=== PATIENT | female | born 1940 | race Caucasian/White ===

== ENCOUNTER 2021-05-25 22:40 | Inpatient (IN) | payer MEDICARE, OTHER ==
[~2021-05-25] VITALS: Ht 165.1 cm; Wt 81.6 kg
--- NOTE | 2021-05-25 23:00 | NUR ---
PATIENT [facility] DUE TO NO BEDS AVAILABLE IN THE. AFTER BEING TRIAGED PATIENT WAS PLACED BACK IN HALLWAY WAITING FOR BE AVAILABILITY.
--- NOTE | 2021-05-26 00:46 | NUR ---
PATIENT PLACED IN ROOM 3A.
--- NOTE | 2021-05-26 02:07 | NUR ---
Ofe cheek in [facility] - 05/26/21 at 0256 by LAITH Report given to GIO Garcia for [place] admission under Dr. Jose C Caceres
[2021-05-26 02:19] LABS: HEMATOCRIT 34.5 % (31.2-41.9); MEAN CORPUSCULAR HEMOGLOBIN 26.1 uug (24.7-32.8); MEAN CORPUSCULAR VOLUME 84.2 fL (75.5-95.3); PLATELET COUNT (AUTO) 432 K/uL (179-408)
[2021-05-26 02:37] LABS: ALANINE AMINOTRANSFERASE 68 U/L (14-59); ALKALINE PHOSPHATASE 132 U/L (50-136); ASPARTATE AMINOTRANSFERASE 34 U/L (15-37); BILIRUBIN,DIRECT 0.1 mg/dL (0.0-0.2); BILIRUBIN,TOTAL 0.3 mg/dL (0.2-1.0); CARBON DIOXIDE 21 mmol/L (21-32); CHLORIDE 104 mmol/L (98-107); CREATININE 1.8 mg/dL (0.6-1.3); POTASSIUM 4.3 mmol/L (3.5-5.1); UREA NITROGEN, BLOOD 43 mg/dL (7-18)
[2021-05-26 02:46] LABS: GLUCOSE 372 mg/dL (74-106)
[2021-05-26] MEDS ORDERED: AZITHROMYCIN IV 500 MG in IV DEXTROSE 5% 250 ML IV ONE (03:30)
[2021-05-26] MEDS ORDERED: ENOXAPARIN SODIUM 80 MG/0.8 ML DISP.SYRIN SQ ONE ×2 (03:30→04:55)
[2021-05-26] MEDS ORDERED: VANCOMYCIN 1G/D5W 200 ML PIGGYBACK IV ONE (03:30)
[2021-05-26] MEDS ORDERED: IV NS 1000 ML 1,000 ML IV ONE (03:30)
[2021-05-26] MEDS ORDERED: CEFEPIME HCL 2 G in IV DEXTROSE 5% 100 ML IV ONE (03:30)
[2021-05-26 04:43] LABS: *BILIRUBIN,URIN 2+ (NEGATIVE); *BLOOD, URINE 3+ (NEGATIVE); *COLOR,URINE YELLOW (YELLOW); *KETONES,URINE 1+ (NEGATIVE); *UROBILINOGEN,URINE 0.2 E.U./dl (NORMAL); LEUKOCYTE ESTERASE ,URINE 1+ (NEGATIVE); NITRITE, URINE NEGATIVE (NEGATIVE); UGLUCOSE 1+ (NEGATIVE)
[2021-05-26 04:45] LABS: *CLARITY,URINE TURBID (CLEAR)
[2021-05-26 04:46] LABS: BACTERIA,URINE MANY /HPF (NONE SEEN); RBC,URINE 20-50 /HPF (0-3); SQUAMOUS EPITHELIAL CELL,UR FEW /HPF (NONE SEEN); WBC,URINE 50-80 /HPF (0-3)
[2021-05-26] MEDS ORDERED: ASPI81TA31 PO (04:46)
[2021-05-26] MEDS ORDERED: ATOR80TA PO (04:46)
[2021-05-26] MEDS ORDERED: MULT-619 PO (04:46)
[2021-05-26] MEDS ORDERED: INSU100C4 (04:46)
[2021-05-26] MEDS ORDERED: NIFE-35 PO (04:46)
[2021-05-26] MEDS ORDERED: CARV12.52 PO (04:46)
[2021-05-26] MEDS ORDERED: CLOP75TA33 PO (04:46)
[2021-05-26] MEDS ORDERED: ACET-2154 PO (04:46)
[2021-05-26] MEDS ORDERED: FAMO-132 PO (04:46)
--- NOTE | 2021-05-26 04:47 | NUR ---
PAGED DR VALDEZ, WAITING FOR DR ENRIQUEZ TO CALL BACK.
[2021-05-26] MEDS ORDERED: AZITHROMYCIN 500MG/ D5W 250ML IVPB **ER PYXIS ONLY IV ONE (04:55)
[2021-05-26] MEDS ORDERED: CEFEPIME HCL 1 G VIAL ONE (04:55)
[2021-05-26] MEDS ORDERED: VANCOMYCIN IV 200 ML ONE (04:56)
--- NOTE | 2021-05-26 06:34 | NUR ---
Patient in bed asleep, vital signs stable. Will continue to monitor.
--- NOTE | 2021-05-26 10:09 | NUR ---
perineal hygiene provided. diaper with large amount of urine, small skin abrasion on the left buttock noticed, irrigated with ns and dressed with border line dressing, small tender lump in the left groin also noticed.
[2021-05-26] MEDS ORDERED: DEXTROSE 50% 50 ML DISP.SYRIN IV PRN ×2 (11:30→20:45)
[2021-05-26] MEDS ORDERED: INSULIN ASPART 300 UNIT/3 ML CARTRIDGE SQ SCH (11:30)
[2021-05-26] MEDS ORDERED: ONDANSETRON 4 MG/2 ML VIAL IV PRN (11:30)
[2021-05-26] MEDS ORDERED: ZOLPIDEM 5 MG TABLET PO PRN (11:30)
[2021-05-26] MEDS ORDERED: ACETAMINOPHEN 325 MG TABLET PO PRN (11:30)
[2021-05-26] MEDS ORDERED: INSULIN REGULAR, HUMAN 300 UNIT/3 ML VIAL SQ PRN (11:30)
[2021-05-26] MEDS ORDERED: MAGNESIUM HYDROXIDE 30 ML LIQUID UDC PO PRN (11:30)
[2021-05-26] MEDS ORDERED: REMEDY ESSENTIAL ZINC PASTE 113 GM TP PRN (11:30)
[2021-05-26] MEDS ORDERED: PIPERACILLIN/TAZO 2.25 G in IV DEXTROSE 5% 50 ML IV SCH (12:00)
[2021-05-26] MEDS: BLOOD SUGAR DIAGNOSTIC 1 EACH STRIP VI SCH ×3 (12:18→21:09)
--- NOTE | 2021-05-26 12:20 | NUR ---
pt bs 436, medicated and called dr. rose per order.
[2021-05-26] MEDS ORDERED: INSULIN REGULAR, HUMAN 300 UNIT/3 ML VIAL ONE (12:31)
[2021-05-26] MEDS: CLOPIDOGREL 75 MG TABLET PO SCH (12:42)
[2021-05-26] MEDS: ASPIRIN 81 MG TAB.CHEW PO SCH (12:42)
[2021-05-26] MEDS: NIFEdipine XL 30 MG TABSR PO SCH (12:45)
[2021-05-26] MEDS ORDERED: NIFEdipine XL 30 MG TABSR PO ONE (12:50)
[2021-05-26] MEDS ORDERED: ASPIRIN 81 MG TAB.CHEW ONE (12:50)
[2021-05-26] MEDS ORDERED: CLOPIDOGREL 75 MG TABLET ONE (12:51)
--- NOTE | 2021-05-26 13:23 | NUR ---
O2 4 litre via nc placed, improved the o2 from 95% to 99% per MD order.
--- NOTE | 2021-05-26 14:02 | NUR ---
pt transfered to floor in stable condition
--- NOTE | 2021-05-26 14:05 | NUR ---
Patient received by charge nurse and GLOBAL MOBILITY SPECIALIST. Pt was sleeping when i entered the room. No sign of distress noted. Belongings list completed. Safety measure in place. Will continue to monitor.
--- NOTE | 2021-05-26 14:05 | NUR ---
Received this admission from ER per scarlett, 80 yo female, with the chief complaint of fever, with diagnosis of NSTEMI; Pneumonia. Transferred to bed comfortably. Routine admission care rendered. Awake, confused. Room air with O2 sat of 97%. Placed on Tele ST [facility]. Dr. Almaguer informed of admission
[2021-05-26 14:15] VITALS: BP 160/78
[2021-05-26 15:00] VITALS: BP 155/75
[2021-05-26] MEDS: CEFEPIME HCL 1 G in IV DEXTROSE 5% 50 ML IV SCH (18:26)
[2021-05-26] MEDS: CARVEDILOL 12.5 MG TABLET PO SCH (18:28)
--- NOTE | 2021-05-26 19:23 | NUR ---
Admission is completed. Medications given. Will endorse PCR and Picture to be done by oncoming nurse. Safety in place. Patient now awake and is confused.
--- NOTE | 2021-05-26 19:30 | NUR ---
RECEIVED PATIENT IN BED, SLEEPING INTERMITTENTLY. EASILY AROUSABLE TO NAME AND TOUCH, SHE IS CONFUSED AND DISORIENTED. ANSWERS INAPPROPRIATELY. NO RESPIRATORY DISTRESS, ON RA, NO COUGHING. NO S/S OF PAIN NOTED. CALL [facility] WITHIN REACH, SAFETY MEASURES INITIATED.
[2021-05-26] MEDS: ATORVASTATIN 40 MG TABLET PO SCH (20:42)
[2021-05-26] MEDS: INSULIN REGULAR, HUMAN 300 UNITS/3 ML VIAL SQ PRN (21:12)
[2021-05-27] MEDS ORDERED: VANCOMYCIN IV 750 MG in IV DEXTROSE 5% 250 ML IV SCH (03:00)
[2021-05-27] MEDS ORDERED: VANCOMYCIN HCL 500 MG VIAL ONE (04:31)
[2021-05-27] MEDS: CEFEPIME HCL 1 G in IV DEXTROSE 5% 50 ML IV SCH ×2 (06:11→16:38)
[2021-05-27 06:48] LABS: HEMATOCRIT 29.8 % (31.2-41.9); MEAN CORPUSCULAR HEMOGLOBIN 26.5 uug (24.7-32.8); MEAN CORPUSCULAR VOLUME 82.6 fL (75.5-95.3); PLATELET COUNT (AUTO) 360 K/uL (179-408)
[2021-05-27] MEDS: BLOOD SUGAR DIAGNOSTIC 1 EACH STRIP VI SCH ×4 (06:59→21:39)
--- NOTE | 2021-05-27 07:00 | NUR ---
NO SIGNIFICANT EVENTS THIS SHIFT. PATIENT REMAINS CONFUSED. CALL LIGHT WITHIN REACH. SAFETY MEASURES CONTINUED.
[2021-05-27 07:27] LABS: CREATININE 1.3 mg/dL (0.6-1.3); MAGNESIUM 2.5 mg/dL (1.8-2.4); PHOSPHOROUS 3.1 mg/dL (2.5-4.9); POTASSIUM 3.8 mmol/L (3.5-5.1)
--- NOTE | 2021-05-27 08:00 | NUR ---
Received in bed easily arousable and responsive. No sob noted. Answers to mostly yes/no questions only. Iv intact and patent. Safety measures maintained. COnt to monitor
[2021-05-27] MEDS ORDERED: FAMOTIDINE 20 MG TABLET PO SCH (09:00)
[2021-05-27] MEDS: INSULIN REGULAR, HUMAN 300 UNIT/3 ML VIAL SQ PRN ×3 (09:08→17:05)
[2021-05-27] MEDS: MULTIVIT, IRON, MIN NO. 8, FA TABLET PO SCH (09:09)
[2021-05-27] MEDS: CARVEDILOL 12.5 MG TABLET PO SCH ×2 (09:09→17:05)
[2021-05-27] MEDS: ASPIRIN 81 MG TAB.CHEW PO SCH (09:09)
[2021-05-27] MEDS: NIFEdipine XL 30 MG TABSR PO SCH (09:09)
[2021-05-27] MEDS: CLOPIDOGREL 75 MG TABLET PO SCH (09:09)
[2021-05-27] MEDS: FAMOTIDINE 20 MG TABLET PO SCH (09:10)
--- NOTE | 2021-05-27 10:29 | NUR ---
Spoke to brother Volodymyr and updated on condition was appreciative.
--- NOTE | 2021-05-27 10:30 | NUR ---
seen and examined by dr. harding with order to dc telemetry.
--- NOTE | 2021-05-27 11:26 | NUR ---
received new order from dr. yao for lantus 5 units sq bid noted.
[2021-05-27] MEDS: INSULIN GLARGINE,HUM 300 UNITS/3 ML CARTRIDGE SQ SCH ×2 (11:46→21:44)
[2021-05-27 11:53] VITALS: BP 103/49
[2021-05-27 16:13] VITALS: BP 119/63
--- NOTE | 2021-05-27 18:18 | NUR ---
awake in bed no acute distress. comfortable on room air o2 sat 94%. no sob noted. iv intact and patent. needs attended. cont to monitor.
--- NOTE | 2021-05-27 19:30 | NUR ---
Patient sleeping in bed. Patient is confused, speech is inappropriate. Able to state when in pain, pain noted during ADL's. Relieved with rest. Right wrist IV in place, patent and intact. Is incontinent. Off loading continued to relieve pressure areas. Safety measures continued. On RA, no SOB. Call light within reach.
[2021-05-27 20:00] VITALS: BP 146/61
[2021-05-27] MEDS: ATORVASTATIN 40 MG TABLET PO SCH (21:37)
[2021-05-27] MEDS: INSULIN REGULAR, HUMAN 300 UNITS/3 ML VIAL SQ PRN (21:44)
[2021-05-28] MEDS ORDERED: VANCOMYCIN IV 1,000 MG in IV DEXTROSE 5% 250 ML IV SCH (02:00)
[2021-05-28 04:00] VITALS: BP 159/67
[2021-05-28] MEDS: CEFEPIME HCL 1 G in IV DEXTROSE 5% 50 ML IV SCH ×2 (04:38→17:49)
[2021-05-28] MEDS: BLOOD SUGAR DIAGNOSTIC 1 EACH STRIP VI SCH ×4 (06:54→21:26)
--- NOTE | 2021-05-28 06:55 | NUR ---
Patient remains confused. Able to make simple needs known. Requests water as needed. No respiratory distress. no significant events this shift.
[2021-05-28 07:38] LABS: CREATININE 1.2 mg/dL (0.6-1.3); POTASSIUM 3.7 mmol/L (3.5-5.1)
[2021-05-28] MEDS: ASPIRIN 81 MG TAB.CHEW PO SCH (09:28)
[2021-05-28] MEDS: CLOPIDOGREL 75 MG TABLET PO SCH (09:28)
[2021-05-28] MEDS: MULTIVIT, IRON, MIN NO. 8, FA TABLET PO SCH (09:28)
[2021-05-28] MEDS: NIFEdipine XL 30 MG TABSR PO SCH (09:29)
[2021-05-28] MEDS: FAMOTIDINE 20 MG TABLET PO SCH (09:29)
[2021-05-28] MEDS: CARVEDILOL 12.5 MG TABLET PO SCH ×2 (09:29→18:04)
[2021-05-28] MEDS: INSULIN GLARGINE,HUM 300 UNITS/3 ML CARTRIDGE SQ SCH ×2 (09:42→21:31)
[2021-05-28] MEDS: INSULIN REGULAR, HUMAN 300 UNIT/3 ML VIAL SQ PRN ×3 (09:43→18:06)
[2021-05-28 12:00] VITALS: BP 112/52
--- NOTE | 2021-05-28 12:00 | NUR ---
Pt is confused, bedbound, incontinent x 2 saturating 95% on room air. Pt blood glucose was 435 at 1130 accucheck, notified MD and per MD order changed insulin sliding scale from moderate to aggressive. MD will adjust Lantus dose for pm dosing. Insulin coverage given. Will continue to monitor pt.
[2021-05-28] MEDS ORDERED: DEXTROSE 50% 50 ML DISP.SYRIN IV PRN (12:45)
[2021-05-28 16:00] VITALS: BP 133/66
[2021-05-28 20:00] VITALS: BP 129/60
--- NOTE | 2021-05-28 21:00 | NUR ---
Dr. Gibson added metformin and actos to medication regimen. Goal is to send her home without insulin to continue PO diabetic meds.
[2021-05-28] MEDS: ATORVASTATIN 40 MG TABLET PO SCH (21:25)
[2021-05-28] MEDS: PIOGLITAZONE HCL 15 MG TABLET PO SCH (21:25)
[2021-05-28] MEDS: INSULIN REGULAR, HUMAN 300 UNITS/3 ML VIAL SQ PRN (21:29)
[2021-05-28] MEDS: METFORMIN XR 500 MG TAB.SR.24H PO SCH (21:31)
[2021-05-29] MEDS ORDERED: VANCOMYCIN IV 1,000 MG in IV DEXTROSE 5% 250 ML IV SCH (02:00)
[2021-05-29 04:00] VITALS: BP 130/65
[2021-05-29] MEDS: CEFEPIME HCL 1 G in IV DEXTROSE 5% 50 ML IV SCH ×2 (05:24→17:33)
[2021-05-29] MEDS: BLOOD SUGAR DIAGNOSTIC 1 EACH STRIP VI SCH ×4 (06:32→21:19)
--- NOTE | 2021-05-29 07:00 | NUR ---
Patient remains confused. No significant events this shift. Safety measures continued, call light within reach.
[2021-05-29 07:11] LABS: CREATININE 1.2 mg/dL (0.6-1.3); POTASSIUM 3.7 mmol/L (3.5-5.1)
[2021-05-29] MEDS: CLOPIDOGREL 75 MG TABLET PO SCH (09:24)
[2021-05-29] MEDS: ASPIRIN 81 MG TAB.CHEW PO SCH (09:24)
[2021-05-29] MEDS: MULTIVIT, IRON, MIN NO. 8, FA TABLET PO SCH (09:24)
[2021-05-29] MEDS: PIOGLITAZONE HCL 15 MG TABLET PO SCH (09:24)
[2021-05-29] MEDS: FAMOTIDINE 20 MG TABLET PO SCH (09:25)
[2021-05-29] MEDS: NIFEdipine XL 30 MG TABSR PO SCH (09:29)
[2021-05-29] MEDS: CARVEDILOL 12.5 MG TABLET PO SCH ×2 (09:30→17:37)
[2021-05-29] MEDS: INSULIN REGULAR, HUMAN 300 UNIT/3 ML VIAL SQ PRN ×3 (09:32→16:29)
[2021-05-29] MEDS: INSULIN GLARGINE,HUM 300 UNITS/3 ML CARTRIDGE SQ SCH ×2 (09:39→21:32)
[2021-05-29 10:57] VITALS: BP 134/101
--- NOTE | 2021-05-29 13:38 | NUR ---
WOUND CARE CONSULT: PT PRESENTS WITH LEFT GROIN PUNCTURE SITE (S/P PROCEDURE), BREASTFOLD AND ABDOMINAL FOLD REDNESS AND INCONTINENCE ASSOCIATED SKIN DAMAGE TO BUTTOCKS, ALL PRESENT ON ADMISSION. PT NOTED TO HAVE DISCOLORATIONS TO LEFT LATERAL ANKLE AND FOOT. DPM CONSULT CALLED TO DR EDWARD. RECOMMENDATIONS MADE FOR SKIN PROTECTION AND CARE. DISCUSSED WITH NURSING STAFF AND DONOR SERVICES SPECIALIST. IN AGREEMENT WITH PLAN OF CARE. Addendum: 05/29/21 at 1341 by ERICK LARKIN RN Amended: Links added. Addendum: 05/29/21 at 1346 by ERICK LARKIN RN PT NOTED TO HAVE MULTIPLE CO-MORBIDITIES INCLUDING ENCEPHALOPATHY, RECURRENT URINARY TRACT INFECTIONS, DIABETES, HISTORY OF CVA AND SEIZURES. DUE TO MULTIPLE CO-MORBIDITIES, FURTHER SKIN BREAKDOWN MAY BE UNAVOIDABLE.
--- NOTE | 2021-05-29 15:38 | NUR ---
Patient remains confused. Wound consult regarding currents wounds. Pictures taken and put into chart.
[2021-05-29 15:54] VITALS: BP 116/47
[2021-05-29] MEDS: METFORMIN XR 500 MG TAB.SR.24H PO SCH (17:37)
[2021-05-29 20:00] VITALS: BP 139/57
[2021-05-29] MEDS: ATORVASTATIN 40 MG TABLET PO SCH (21:10)
[2021-05-29] MEDS: INSULIN REGULAR, HUMAN 300 UNITS/3 ML VIAL SQ PRN (21:31)
[2021-05-30] MEDS ORDERED: OXACILLIN SODIUM IV SCH ×2
[2021-05-30] MEDS ORDERED: NORMAL SALINE IV SCH ×2
[2021-05-30] MEDS ORDERED: CEFTRIAXONE 1 G VIAL ONE (01:39)
[2021-05-30 04:00] VITALS: BP 159/68
--- NOTE | 2021-05-30 05:56 | NUR ---
Slept throughout the night. No distress noted. Pt able to be easily aroused. IV site intact. Alma care provided. Safety maintained. Will endorse to day shift.
[2021-05-30] MEDS: BLOOD SUGAR DIAGNOSTIC 1 EACH STRIP VI SCH ×4 (06:41→21:54)
[2021-05-30] MEDS: INSULIN REGULAR, HUMAN 300 UNIT/3 ML VIAL SQ PRN ×3 (08:27→17:23)
[2021-05-30] MEDS: FAMOTIDINE 20 MG TABLET PO SCH (08:52)
[2021-05-30] MEDS: CLOPIDOGREL 75 MG TABLET PO SCH (08:52)
[2021-05-30] MEDS: MULTIVIT, IRON, MIN NO. 8, FA TABLET PO SCH (08:52)
[2021-05-30] MEDS: ASPIRIN 81 MG TAB.CHEW PO SCH (08:52)
[2021-05-30] MEDS: CARVEDILOL 12.5 MG TABLET PO SCH ×2 (08:53→17:38)
[2021-05-30] MEDS: NIFEdipine XL 30 MG TABSR PO SCH (08:53)
[2021-05-30] MEDS: CEFTRIAXONE 2 G in IV DEXTROSE 5% 100 ML IV SCH (08:57)
[2021-05-30] MEDS ORDERED: CEFTRIAXONE 2 G VIAL IM SCH (09:00)
[2021-05-30] MEDS: INSULIN GLARGINE,HUM 300 UNITS/3 ML CARTRIDGE SQ SCH ×2 (09:00→21:55)
[2021-05-30] MEDS: PIOGLITAZONE HCL 15 MG TABLET PO SCH (09:44)
[2021-05-30 11:45] VITALS: BP 108/51
--- NOTE | 2021-05-30 15:00 | NUR ---
DR HIRSCH HERE TO SEE PATIENT WITH ORDERS AWARE THAT PATIENT REFUSED PHYSICAL THERAPY AND IS ASKING FOR A CAST ALSO AWARE THAT PATIENT DOES NOT WANT IVS BUT HAS IV MORPHINE STATED WILL CHANGE THE ROUTE. Addendum: 05/30/21 at 1847 by VERENA SILVA RN ERROR WRONG PATIENT
--- NOTE | 2021-05-30 15:01 | NUR ---
DR HIRSCH HERE TO SEE PATIENT AWARE THAT PATIENT IS INCONTINENT STATED OKAY TO STRAIGHT CATH.
[2021-05-30 16:52] VITALS: BP 109/50
[2021-05-30] MEDS: METFORMIN XR 500 MG TAB.SR.24H PO SCH (17:37)
--- NOTE | 2021-05-30 18:00 | NUR ---
PATIENT IS INCONTINENT UNABLE TO OBTAIN URINE SPECIMEN STRAIGHT CATH AND SPECIMEN OBTAINED AND SENT TO THE LAB.
--- NOTE | 2021-05-30 19:30 | NUR ---
Received patient lying in bed. AAOX1-2, appears confused. Reoriented patient accordingly. On room air. Patient shows no signs of distress, shortness of breathing, chest pain or dizziness. Safety precautions initiated. Will continue to monitor.
[2021-05-30 20:03] VITALS: BP 139/68
[2021-05-30] MEDS: ATORVASTATIN 40 MG TABLET PO SCH (21:24)
[2021-05-30] MEDS: INSULIN REGULAR, HUMAN 300 UNITS/3 ML VIAL SQ PRN (21:56)
[2021-05-31 04:06] VITALS: BP 166/74
--- NOTE | 2021-05-31 05:12 | NUR ---
Patient slept through the night, with no complaints. On room air. IV access patent and intact. Compliant with medication regimen. All needs attended to and met. Safety precautions maintained. Will endorse to day shift.
[2021-05-31] MEDS: CARVEDILOL 12.5 MG TABLET PO SCH ×2 (05:48→17:27)
[2021-05-31] MEDS: BLOOD SUGAR DIAGNOSTIC 1 EACH STRIP VI SCH ×4 (06:34→20:17)
--- NOTE | 2021-05-31 06:36 | NUR ---
Pt's BP was elevated at 169/83mmhg with HR of 74bpm, administered morning scheduled Coreg to reduce blood pressure. Will advise morning shift.
[2021-05-31 07:06] LABS: HEMATOCRIT 30.7 % (31.2-41.9); MEAN CORPUSCULAR HEMOGLOBIN 26.2 uug (24.7-32.8); MEAN CORPUSCULAR VOLUME 83.5 fL (75.5-95.3); PLATELET COUNT (AUTO) 607 K/uL (179-408)
[2021-05-31 07:38] LABS: CREATININE 1.1 mg/dL (0.6-1.3); POTASSIUM 3.5 mmol/L (3.5-5.1)
--- NOTE | 2021-05-31 07:45 | NUR ---
Received pt in bed awake and oriented to name only. No acute distress. Iv on left arm infiltrated and removed. No s/sx of pain or facial grimacing. Kept comfortable. Call light and personal belongings in reach. COnt to monitor.
[2021-05-31] MEDS: CEFTRIAXONE 2 G in IV DEXTROSE 5% 100 ML IV SCH (08:39)
[2021-05-31] MEDS: ASPIRIN 81 MG TAB.CHEW PO SCH (08:41)
[2021-05-31] MEDS: MULTIVIT, IRON, MIN NO. 8, FA TABLET PO SCH (08:41)
[2021-05-31] MEDS: CLOPIDOGREL 75 MG TABLET PO SCH (08:41)
[2021-05-31] MEDS: FAMOTIDINE 20 MG TABLET PO SCH (08:42)
[2021-05-31] MEDS: NIFEdipine XL 30 MG TABSR PO SCH (08:42)
[2021-05-31] MEDS: PIOGLITAZONE HCL 15 MG TABLET PO SCH (08:42)
[2021-05-31] MEDS: INSULIN GLARGINE,HUM 300 UNITS/3 ML CARTRIDGE SQ SCH ×2 (08:46→20:18)
--- NOTE | 2021-05-31 11:58 | NUR ---
Spoke to brother Volodymyr and updated on condition. He was appreciative.
[2021-05-31 12:00] VITALS: BP 137/63
[2021-05-31] MEDS: INSULIN REGULAR, HUMAN 300 UNIT/3 ML VIAL SQ PRN ×2 (12:08→17:25)
[2021-05-31 16:00] VITALS: BP 133/55
[2021-05-31] MEDS: METFORMIN XR 500 MG TAB.SR.24H PO SCH (17:26)
[2021-05-31] MEDS: GLUCERNA SHAKE VANILLA 237 ML CAN PO SCH (17:27)
--- NOTE | 2021-05-31 18:29 | NUR ---
No change from morning assessment.
--- NOTE | 2021-05-31 19:20 | NUR ---
Received pt lying in bed with HOB slightly elevated. On room air saturating at 96%. No signs of acute distress noted. IV in R wrist intact and patent, TKO. Allergies noted. Call lights within reach. Safety measures initiated.
[2021-05-31] MEDS: ATORVASTATIN 40 MG TABLET PO SCH (20:14)
[2021-05-31] MEDS: INSULIN REGULAR, HUMAN 300 UNITS/3 ML VIAL SQ PRN (20:22)
[2021-05-31 20:46] VITALS: BP 131/55
[2021-06-01 04:50] VITALS: BP 152/67
[2021-06-01 06:30] LABS: HEMATOCRIT 27.8 % (31.2-41.9); MEAN CORPUSCULAR HEMOGLOBIN 26.2 uug (24.7-32.8); MEAN CORPUSCULAR VOLUME 83.3 fL (75.5-95.3); PLATELET COUNT (AUTO) 593 K/uL (179-408)
[2021-06-01] MEDS: BLOOD SUGAR DIAGNOSTIC 1 EACH STRIP VI SCH ×6 (06:34→21:20)
[2021-06-01 06:52] LABS: CREATININE 1.1 mg/dL (0.6-1.3); POTASSIUM 3.6 mmol/L (3.5-5.1)
--- NOTE | 2021-06-01 06:57 | NUR ---
Pt slept intermittently throughout the night. On room air saturating at * Compliant with medication and care. Denies pain or discomfort when asked. No signs of acute distress noted. Per lab, blood cx resulted gram positive cocci in clusters on gram stain, MD notified. Call lights within reach, safety measures maintained. Will endorse to am shift.
--- NOTE | 2021-06-01 06:58 | NUR ---
Oxygen saturating at 97% on room air. No signs of acute distress.
--- NOTE | 2021-06-01 07:45 | NUR ---
Received in bed awakens easily, oriented to name. No resp distress noted. IV on right wrist intact and patent. Denies pain. Asked to be repositioned and was done. No complaints. Call light and personal belongings in reach. Cont to monitor.
[2021-06-01] MEDS: CEFTRIAXONE 2 G in IV DEXTROSE 5% 100 ML IV SCH (08:48)
[2021-06-01] MEDS: FAMOTIDINE 20 MG TABLET PO SCH (08:53)
[2021-06-01] MEDS: ASPIRIN 81 MG TAB.CHEW PO SCH (08:53)
[2021-06-01] MEDS: PIOGLITAZONE HCL 15 MG TABLET PO SCH (08:53)
[2021-06-01] MEDS: CLOPIDOGREL 75 MG TABLET PO SCH (08:53)
[2021-06-01] MEDS: CARVEDILOL 12.5 MG TABLET PO SCH ×2 (08:53→17:43)
[2021-06-01] MEDS: MULTIVIT, IRON, MIN NO. 8, FA TABLET PO SCH (08:53)
[2021-06-01] MEDS: NIFEdipine XL 30 MG TABSR PO SCH (08:53)
[2021-06-01] MEDS: GLUCERNA SHAKE VANILLA 237 ML CAN PO SCH ×3 (08:53→17:44)
[2021-06-01] MEDS: INSULIN GLARGINE,HUM 300 UNITS/3 ML CARTRIDGE SQ SCH ×2 (08:56→21:14)
[2021-06-01] MEDS: INSULIN REGULAR, HUMAN 300 UNIT/3 ML VIAL SQ PRN ×3 (11:58→21:12)
[2021-06-01] MEDS ORDERED: VANCOMYCIN IV 1,250 MG in IV DEXTROSE 5% 250 ML IV SCH (14:00)
--- NOTE | 2021-06-01 16:44 | NUR ---
BS 1630 checked noted 395, rechecked again noted 401. Insulin per SS given as ordered. Dr Gibson made aware. Addendum: 06/01/21 at 1646 by CLAY CRANE RN At this time also spoke with brother Volodymyr and given update. He was appreciative.
--- NOTE | 2021-06-01 16:44 | NUR ---
Patient comfortable. No s/sx of pain or sob. No s/sx of hyperglycemia noted. Cont to monitor.
[2021-06-01] MEDS: METFORMIN XR 500 MG TAB.SR.24H PO SCH (17:43)
[2021-06-01] MEDS: CEFEPIME HCL 2 G in IV DEXTROSE 5% 100 ML IV SCH (17:46)
[2021-06-01 21:04] VITALS: BP 128/50
[2021-06-01] MEDS: ATORVASTATIN 40 MG TABLET PO SCH (21:18)
[2021-06-01] MEDS: INSULIN REGULAR, HUMAN 300 UNITS/3 ML VIAL SQ PRN (21:20)
[2021-06-02] MEDS: CEFEPIME HCL 2 G in IV DEXTROSE 5% 100 ML IV SCH ×2 (03:29→15:46)
[2021-06-02 04:32] VITALS: BP 127/56
[2021-06-02] MEDS: BLOOD SUGAR DIAGNOSTIC 1 EACH STRIP VI SCH ×4 (06:14→21:58)
[2021-06-02 06:52] LABS: HEMATOCRIT 29.5 % (31.2-41.9); PLATELET COUNT (AUTO) 635 K/uL (179-408)
--- NOTE | 2021-06-02 08:00 | NUR ---
Received in bed awake oriented to name. More alert and responsive today. No sob or pain. Comfortable. Call light and personal belongings in reach. Cont to monitor.
[2021-06-02] MEDS: GLUCERNA SHAKE VANILLA 237 ML CAN PO SCH ×3 (08:50→17:16)
[2021-06-02] MEDS: ASPIRIN 81 MG TAB.CHEW PO SCH (08:50)
[2021-06-02] MEDS: PIOGLITAZONE HCL 15 MG TABLET PO SCH (08:50)
[2021-06-02] MEDS: FAMOTIDINE 20 MG TABLET PO SCH (08:50)
[2021-06-02] MEDS: MULTIVIT, IRON, MIN NO. 8, FA TABLET PO SCH (08:50)
[2021-06-02] MEDS: LINAGLIPTIN 5 MG TABLET PO SCH (08:50)
[2021-06-02] MEDS: CLOPIDOGREL 75 MG TABLET PO SCH (08:50)
[2021-06-02] MEDS: CARVEDILOL 12.5 MG TABLET PO SCH ×2 (08:51→17:20)
[2021-06-02] MEDS: NIFEdipine XL 30 MG TABSR PO SCH (08:51)
[2021-06-02] MEDS: INSULIN GLARGINE,HUM 300 UNITS/3 ML CARTRIDGE SQ SCH ×2 (08:53→21:56)
--- NOTE | 2021-06-02 09:07 | NUR ---
Spoke with cassandra Marsh and updated on patient's condition. Patient also spoke to her briefly while having breakfast.
[2021-06-02 09:29] LABS: POTASSIUM 3.8 mmol/L (3.5-5.1)
[2021-06-02] MEDS ORDERED: VANCOMYCIN IV 1,250 MG in IV DEXTROSE 5% 250 ML IV SCH ×2 (11:00→19:30)
[2021-06-02] MEDS: INSULIN REGULAR, HUMAN 300 UNIT/3 ML VIAL SQ PRN ×2 (11:22→17:21)
[2021-06-02 11:54] VITALS: BP 105/50
[2021-06-02 15:41] VITALS: BP 106/47
--- NOTE | 2021-06-02 16:10 | NUR ---
Dr. Gibson contacted for positive mrsa both nares no new order received at this time.
[2021-06-02] MEDS: METFORMIN XR 500 MG TAB.SR.24H PO SCH (17:20)
--- NOTE | 2021-06-02 18:20 | NUR ---
re: critical lab result aerobic bottle gram positive cocci in cluster- Received call back from Dr. Colvin ordered to start Vancomycin pharmacy to dose noted.
--- NOTE | 2021-06-02 18:42 | NUR ---
Call made to [employer] regarding order for ELIZABETH vs TTE. Per ID notes she wants TTE done but she ordered ELIZABETH. Called ID to clarify order spoke to Nathaniel who said will send message to information security specialist and have them call back. Will endorse accordingly.
--- NOTE | 2021-06-02 19:25 | NUR ---
Received call from Dr. Colvin and clarified ELIZABETH/TTE order. Per Dr. Colvin do TTE first. Endorsed.
[2021-06-02 20:00] VITALS: BP 117/47
--- NOTE | 2021-06-02 20:30 | NUR ---
Received patient lying in bed. AOX1, self only. Reoriented patient accordingly. IV access patent and intact. Patient shows no signs of SOB, chest pain or dizziness. Elevated temperature of 99 noted, cooling measures initiated. Safety precautions initiated. Bed in locked position, bed alarm activated. Will continue to monitor.
--- NOTE | 2021-06-02 20:40 | NUR ---
Patient's family member called and expressed concern regarding patient's diet. Advised that since patient is on NPO, mashed potato shouldn't be included on her meal tray. Will endorse to day shift accordingly.
[2021-06-02] MEDS: ATORVASTATIN 40 MG TABLET PO SCH (21:33)
[2021-06-02] MEDS: INSULIN REGULAR, HUMAN 300 UNITS/3 ML VIAL SQ PRN (21:57)
[2021-06-03] MEDS: CEFEPIME HCL 2 G in IV DEXTROSE 5% 100 ML IV SCH ×2 (03:43→16:15)
[2021-06-03 04:00] VITALS: BP 97/50
[2021-06-03] MEDS: BLOOD SUGAR DIAGNOSTIC 1 EACH STRIP VI SCH ×4 (06:30→22:14)
--- NOTE | 2021-06-03 06:36 | NUR ---
Patient slept through the night, with frequent episodes of incoherent mumbling. Patient shows no signs of SOB, chest pain or dizziness. Compliant with medication regimen. All needs to and met. Safety precautions maintained. Will endorse to day shift.
[2021-06-03] MEDS ORDERED: VANCOMYCIN IV 1,250 MG in IV DEXTROSE 5% 250 ML IV SCH ×4 (07:00)
[2021-06-03] MEDS: PIOGLITAZONE HCL 15 MG TABLET PO SCH (08:54)
[2021-06-03] MEDS: LINAGLIPTIN 5 MG TABLET PO SCH (08:54)
[2021-06-03] MEDS: FAMOTIDINE 20 MG TABLET PO SCH (08:55)
[2021-06-03] MEDS: CLOPIDOGREL 75 MG TABLET PO SCH (08:55)
[2021-06-03] MEDS: MULTIVIT, IRON, MIN NO. 8, FA TABLET PO SCH (08:55)
[2021-06-03] MEDS: GLUCERNA SHAKE VANILLA 237 ML CAN PO SCH ×3 (08:56→17:49)
[2021-06-03] MEDS: NIFEdipine XL 30 MG TABSR PO SCH (08:56)
[2021-06-03] MEDS: ASPIRIN 81 MG TAB.CHEW PO SCH (08:56)
[2021-06-03] MEDS: CARVEDILOL 12.5 MG TABLET PO SCH ×2 (08:56→17:49)
[2021-06-03] MEDS: INSULIN GLARGINE,HUM 300 UNITS/3 ML CARTRIDGE SQ SCH ×2 (08:57→22:13)
[2021-06-03] MEDS: MUPIROCIN 2% OINT 22 GM TUBE NS SCH ×2 (09:02→22:11)
--- NOTE | 2021-06-03 10:44 | NUR ---
received a call from Riya ELIZABETH regarding Echo scheduled. Spoke with rachna Triana the Echo will be completed today.
[2021-06-03] MEDS: INSULIN REGULAR, HUMAN 300 UNIT/3 ML VIAL SQ PRN ×2 (11:15→17:53)
[2021-06-03 12:17] VITALS: BP 105/55
[2021-06-03 16:17] VITALS: BP 100/54
--- NOTE | 2021-06-03 17:49 | NUR ---
carvedilol held sbp 100
[2021-06-03] MEDS: METFORMIN XR 500 MG TAB.SR.24H PO SCH (17:53)
[2021-06-03 20:18] VITALS: BP 109/80
[2021-06-03] MEDS: ATORVASTATIN 40 MG TABLET PO SCH (21:57)
[2021-06-03] MEDS: INSULIN REGULAR, HUMAN 300 UNITS/3 ML VIAL SQ PRN (22:14)
[2021-06-04] MEDS: CEFEPIME HCL 2 G in IV DEXTROSE 5% 100 ML IV SCH (03:06)
[2021-06-04 04:41] VITALS: BP 131/54
[2021-06-04] MEDS: BLOOD SUGAR DIAGNOSTIC 1 EACH STRIP VI SCH ×4 (06:57→20:53)
[2021-06-04 07:38] LABS: MEAN CORPUSCULAR HEMOGLOBIN 26.4 uug (24.7-32.8); MEAN CORPUSCULAR VOLUME 82.3 fL (75.5-95.3); PLATELET COUNT (AUTO) 698 K/uL (179-408)
[2021-06-04 07:40] LABS: CREATININE 1.2 mg/dL (0.6-1.3); POTASSIUM 4.7 mmol/L (3.5-5.1)
[2021-06-04] MEDS: ASPIRIN 81 MG TAB.CHEW PO SCH (08:18)
[2021-06-04] MEDS: FAMOTIDINE 20 MG TABLET PO SCH (08:18)
[2021-06-04] MEDS: LINAGLIPTIN 5 MG TABLET PO SCH (08:18)
[2021-06-04] MEDS: MULTIVIT, IRON, MIN NO. 8, FA TABLET PO SCH (08:18)
[2021-06-04] MEDS: NIFEdipine XL 30 MG TABSR PO SCH (08:18)
[2021-06-04] MEDS: CLOPIDOGREL 75 MG TABLET PO SCH (08:18)
[2021-06-04] MEDS: PIOGLITAZONE HCL 15 MG TABLET PO SCH (08:18)
[2021-06-04] MEDS: MUPIROCIN 2% OINT 22 GM TUBE NS SCH ×2 (08:19→20:49)
[2021-06-04] MEDS: CARVEDILOL 12.5 MG TABLET PO SCH ×2 (08:19→17:20)
[2021-06-04] MEDS: GLUCERNA SHAKE VANILLA 237 ML CAN PO SCH ×3 (08:19→17:02)
[2021-06-04] MEDS: INSULIN GLARGINE,HUM 300 UNITS/3 ML CARTRIDGE SQ SCH ×2 (08:20→22:25)
[2021-06-04] MEDS: INSULIN REGULAR, HUMAN 300 UNIT/3 ML VIAL SQ PRN (11:34)
[2021-06-04 11:36] VITALS: BP 99/45
[2021-06-04] MEDS: MICAFUNGIN SODIUM 100 MG in IV NORMAL SALINE 100 ML IV SCH (14:55)
[2021-06-04] MEDS: CEFAZOLIN 2 G in IV DEXTROSE 5% 100 ML IV SCH (15:56)
[2021-06-04 16:00] VITALS: BP 112/69
[2021-06-04] MEDS ORDERED: IV NORMAL SALINE 250 ML IV ONE (16:06)
[2021-06-04] MEDS ORDERED: SWABABLE VALVE TRANSFER SET EA MC ONE (16:06)
[2021-06-04] MEDS ORDERED: IOHEXOL 300MG/ML 100 ML INFUS..BTL ONE (16:06)
--- NOTE | 2021-06-04 19:30 | NUR ---
Received patient laying down in bed. Alert and oriented x 1, confused. On room air saturating 98%. Midline on right upper arm patent and intact. On 1st step mattress with bilateral heels floating. No signs of pain or distress. Bed alarm on, bed in the lowest position, call light within reach. Will continue to monitor.
[2021-06-04 20:00] VITALS: BP 134/55
[2021-06-04] MEDS: ATORVASTATIN 40 MG TABLET PO SCH ×2 (20:49→21:00)
--- NOTE | 2021-06-04 21:57 | NUR ---
BS 95, pt has poor appetite, referred to Dr Mandy Puente 10 units; Md ordered to decrease to 5 units and give to pt.
[2021-06-05] VITALS (14 sets, daily range): BP systolic 116–192; BP diastolic 48–92
[2021-06-05] MEDS: CEFAZOLIN 2 G in IV DEXTROSE 5% 100 ML IV SCH ×4 (00:14→23:21)
[2021-06-05] MEDS: BLOOD SUGAR DIAGNOSTIC 1 EACH STRIP VI SCH ×4 (05:22→20:16)
--- NOTE | 2021-06-05 06:00 | NUR ---
received patient and report from sukhdeep echavarria , patient is confused , responds but not appropriate, on room air , incontinent , sr , sbp 147/58, hr 77 , oxygen saturation 99% on ra rr 16 , no fever , bilateral heel , stage 2 open wound , with yellow sloughing on the side , sacral stage 2 with scant amount of drainage
--- NOTE | 2021-06-05 06:04 | NUR ---
Pt is transferred to CCU Bed 2 for scheduled ELIZABETH; BS is 81. continue plan of care.
--- NOTE | 2021-06-05 07:00 | NUR ---
received no belongings from the flow transfer
--- NOTE | 2021-06-05 07:00 | NUR ---
dr vieyra , dr harding , , tech and primary nurse at bedsided , place on 5 l al , dr vieyra spoke to brother merlyn , got consent for anesthesia ,
[2021-06-05] MEDS ORDERED: PROPOFOL 200 MG/20 ML BOTTLE IV ONE (07:16)
[2021-06-05] MEDS ORDERED: LIDOCAINE-MPF 2% 5 ML VIAL IJ ONE (07:16)
--- NOTE | 2021-06-05 07:20 | NUR ---
ruth done , patient is resposive to deep pain, , dr vieyra is still at bedside ,
--- NOTE | 2021-06-05 07:20 | NUR ---
Received report from machinist 2nd shift nurse, patient in bed with bedside monitor in sinus rhythm. Hemodynamically stable. Patient is opening eyes and verbalizing words. Patient diaper changed and skin cleansed, reapplied mepilex to sacrum. Repositioned patient and called for bed in med/surg.
--- NOTE | 2021-06-05 07:55 | NUR ---
Patient's nurse picked up patient with bed to resume services on med/surg. Vital signs stable, accucheck completed and reads 91. No distress noted at this time. Report given, and patient was discharged from [facility].
--- NOTE | 2021-06-05 07:58 | NUR ---
received from [facility] via bed in stable condition .vs are stable call light with in reach
[2021-06-05] MEDS: PIOGLITAZONE HCL 15 MG TABLET PO SCH (08:31)
[2021-06-05] MEDS: ASPIRIN 81 MG TAB.CHEW PO SCH (08:31)
[2021-06-05] MEDS: LINAGLIPTIN 5 MG TABLET PO SCH (08:31)
[2021-06-05] MEDS: NIFEdipine XL 30 MG TABSR PO SCH (08:32)
[2021-06-05] MEDS: GLUCERNA SHAKE VANILLA 237 ML CAN PO SCH ×3 (08:32→16:40)
[2021-06-05] MEDS: FAMOTIDINE 20 MG TABLET PO SCH (08:32)
[2021-06-05] MEDS: MULTIVIT, IRON, MIN NO. 8, FA TABLET PO SCH (08:32)
[2021-06-05] MEDS: CARVEDILOL 12.5 MG TABLET PO SCH ×2 (08:32→17:04)
[2021-06-05] MEDS: CLOPIDOGREL 75 MG TABLET PO SCH (08:32)
[2021-06-05] MEDS: MUPIROCIN 2% OINT 22 GM TUBE NS SCH ×2 (08:51→20:07)
[2021-06-05] MEDS: INSULIN REGULAR, HUMAN 300 UNIT/3 ML VIAL SQ PRN ×3 (11:16→20:19)
[2021-06-05] MEDS: MICAFUNGIN SODIUM 100 MG in IV NORMAL SALINE 100 ML IV SCH (13:12)
[2021-06-05] MEDS: PROTEIN SUPPLEMENT (PROSTAT) 30 ML LIQUID PO SCH (17:44)
[2021-06-05] MEDS: ATORVASTATIN 40 MG TABLET PO SCH (20:07)
[2021-06-05] MEDS: INSULIN GLARGINE,HUM 300 UNITS/3 ML CARTRIDGE SQ SCH (20:18)
[2021-06-06 04:00] VITALS: BP 150/65
[2021-06-06] MEDS: BLOOD SUGAR DIAGNOSTIC 1 EACH STRIP VI SCH ×3 (06:22→15:48)
[2021-06-06] MEDS: INSULIN REGULAR, HUMAN 300 UNIT/3 ML VIAL SQ PRN ×3 (08:07→16:29)
[2021-06-06] MEDS: CEFAZOLIN 2 G in IV DEXTROSE 5% 100 ML IV SCH ×2 (08:29→15:41)
[2021-06-06] MEDS: ASPIRIN 81 MG TAB.CHEW PO SCH (08:41)
[2021-06-06] MEDS: MULTIVIT, IRON, MIN NO. 8, FA TABLET PO SCH (08:43)
[2021-06-06] MEDS: FAMOTIDINE 20 MG TABLET PO SCH (08:44)
[2021-06-06] MEDS: NIFEdipine XL 30 MG TABSR PO SCH (08:45)
[2021-06-06] MEDS: CLOPIDOGREL 75 MG TABLET PO SCH (08:45)
[2021-06-06] MEDS: PIOGLITAZONE HCL 15 MG TABLET PO SCH (08:46)
[2021-06-06] MEDS: PROTEIN SUPPLEMENT (PROSTAT) 30 ML LIQUID PO SCH ×2 (08:49→16:30)
[2021-06-06] MEDS: MUPIROCIN 2% OINT 22 GM TUBE NS SCH (08:50)
[2021-06-06] MEDS: GLUCERNA SHAKE VANILLA 237 ML CAN PO SCH ×3 (09:19→16:30)
[2021-06-06] MEDS: LINAGLIPTIN 5 MG TABLET PO SCH (09:19)
[2021-06-06] MEDS: CARVEDILOL 12.5 MG TABLET PO SCH ×2 (09:19→17:27)
[2021-06-06] MEDS ORDERED: PIOG15TA8 PO (09:26)
[2021-06-06] MEDS ORDERED: METF-886 PO (09:26)
[2021-06-06] MEDS ORDERED: MICA100V3 IV (09:26)
[2021-06-06] MEDS ORDERED: LINA5TAB PO (09:26)
[2021-06-06] MEDS ORDERED: FAMO20TA8 PO (09:26)
[2021-06-06] MEDS ORDERED: CEFA2PLA9 IV (09:26)
[2021-06-06 11:22] VITALS: BP 121/53
[2021-06-06] MEDS: MICAFUNGIN SODIUM 100 MG in IV NORMAL SALINE 100 ML IV SCH (13:23)
[2021-06-06 15:07] VITALS: BP 109/58
--- NOTE | 2021-06-06 17:20 | NUR ---
report given to Amara centeno
[2021-06-06 17:27] VITALS: BP 109/58
[2021-06-06] MEDS ORDERED: METFORMIN XR 500 MG TAB.SR.24H PO SCH (18:00)
--- NOTE | 2021-06-06 18:19 | NUR ---
patient is discharging to [facility], stable condition, no distress noted, patient has intact midline to right upper arm, to continue the IV atb at SNF, report given to jazmyn regarding continuation of antibiotic therapy, belongings are accounted and signed, report given to nurse jazmyn and treatment orders to left foot explained over the phone.
--- NOTE | 2021-06-06 19:22 | NUR ---
patient discharged, picked up by ambulance.
== END 2021-06-06 19:23 | DRG 871 ==
LOC: ER 22:47 → TRANSITION 05-26 06:41 → TELE3 05-26 13:56 → MEDSURG3 05-27 10:54 → CCU 06-05 06:05 → MEDSURG3 06-05 08:10
PROVIDERS: ADMIT Internal Medicine Nephrology; ATTEND Internal Medicine
PROC: 05H533Z Insertion of Infusion Device into Right Subclavian Vein, Percutaneous Approach (ICD-10-PCS; principal; 2021-06-01)
PROC: B546ZZA Ultrasonography of Right Subclavian Vein, Guidance (ICD-10-PCS; 2021-06-01)
DX: A41.01 Sepsis due to Methicillin susceptible Staphylococcus aureus (principal); I21.A1 Myocardial infarction type 2; J18.9 Pneumonia, unspecified organism; G93.41 Metabolic encephalopathy; N17.0 Acute kidney failure with tubular necrosis; E44.0 Moderate protein-calorie malnutrition; B37.49 Other urogenital candidiasis; G40.909 Epilepsy, unspecified, not intractable, without status epilepticus; D64.9 Anemia, unspecified; D75.839 Thrombocytosis, unspecified; E88.09 Other disorders of plasma-protein metabolism, not elsewhere classified; I10 Essential (primary) hypertension; E78.5 Hyperlipidemia, unspecified; Z87.440 Personal history of urinary (tract) infections; Z86.73 Personal history of transient ischemic attack (TIA), and cerebral infarction without residual deficits; E11.65 Type 2 diabetes mellitus with hyperglycemia; Z20.822 Contact with and (suspected) exposure to COVID-19; L89.896 Pressure-induced deep tissue damage of other site; L89.526 Pressure-induced deep tissue damage of left ankle; Z68.30 Body mass index [BMI] 30.0-30.9, adult; Z79.84 Long term (current) use of oral hypoglycemic drugs
CPT/HCPCS: 36415; 70030-TC; 71045; 83605; 83735; 84100; 85025; 85730; 87040; 87077; 87086; 87400; 93005; 93307; 93312; A6209; C1758; G0378; J0456; J0690; J0692; J0696; J1650; J1815; J2248; J3370; J3490; J7030; J7040; J7050; J7060; Q9967; U0003

== ENCOUNTER 2021-07-10 22:32 | Inpatient (IN) | payer MEDICARE, OTHER ==
[~2021-07-10] VITALS: Ht 170.2 cm; Wt 78.0 kg
[~2021-07-10 22:32] MED LIST: ACET-2154 PO; ASPI81TA31 PO; ATOR80TA PO; CARV12.52 PO; CEFA2PLA9 IV; CLOP75TA33 PO; FAMO-132 PO; FAMO20TA8 PO; INSU100C4; LINA5TAB PO; METF-886 PO; MICA100V3 IV; MULT-619 PO; NIFE-35 PO; PIOG15TA8 PO
--- NOTE | 2021-07-10 22:40 | NUR ---
Dr. Ferreira at bedside for MSE.
--- NOTE | 2021-07-10 22:50 | NUR ---
Pt BIB ambulance from a subacute for abnormal labs. Pt is AOx2. Extremities WNL. No distress noted. Denies SOB or chest pain. Afebrile.
[2021-07-10] MEDS ORDERED: MAGN400O6 PO (23:00)
[2021-07-10] MEDS ORDERED: GLUC1KIT IM (23:00)
[2021-07-10] MEDS ORDERED: ASCO500C18 PO (23:00)
[2021-07-10] MEDS ORDERED: ZINC50TA69 PO (23:00)
[2021-07-10] MEDS ORDERED: ARGI1POW13 PO (23:00)
[2021-07-10] MEDS ORDERED: BISA10SU61 RC (23:00)
[2021-07-10] MEDS ORDERED: NA P133E RC (23:00)
[2021-07-10] MEDS ORDERED: AMIN30LI2 PO (23:00)
[2021-07-10 23:29] LABS: HEMATOCRIT 23.7 % (31.2-41.9); MEAN CORPUSCULAR HEMOGLOBIN 26.5 uug (24.7-32.8); MEAN CORPUSCULAR VOLUME 82.4 fL (75.5-95.3); PLATELET COUNT (AUTO) 538 K/uL (179-408)
[2021-07-10 23:30] LABS: CREATININE 0.9 mg/dL (0.6-1.3); POTASSIUM 3.1 mmol/L (3.5-5.1)
[2021-07-10 23:35] LABS: BILIRUBIN,DIRECT 0.1 mg/dL (0.0-0.2); BILIRUBIN,TOTAL 0.2 mg/dL (0.2-1.0); TOTAL PROTEIN, SERUM 6.5 g/dL (6.4-8.2)
[2021-07-10 23:39] LABS: *BILIRUBIN,URIN NEGATIVE (NEGATIVE); *BLOOD, URINE 2+ (NEGATIVE); *CLARITY,URINE TURBID (CLEAR); *COLOR,URINE YELLOW (YELLOW); *KETONES,URINE TRACE (NEGATIVE); *UROBILINOGEN,URINE 0.2 E.U./dl (NORMAL); LEUKOCYTE ESTERASE ,URINE 3+ (NEGATIVE); NITRITE, URINE NEGATIVE (NEGATIVE); PH,URINE 5.5 (5.0-8.0); UGLUCOSE TRACE (NEGATIVE)
[2021-07-10 23:45] LABS: BACTERIA,URINE MANY /HPF (NONE SEEN); RBC,URINE TNTC /HPF (0-3); SQUAMOUS EPITHELIAL CELL,UR MODERATE /HPF (NONE SEEN); WBC,URINE TNTC /HPF (0-3)
[2021-07-11] VITALS (9 sets, daily range): BP systolic 138–176; BP diastolic 53–89
[2021-07-11] MEDS ORDERED: CEFTRIAXONE 1 G in IV DEXTROSE 5% 50 ML IV ONE ×2
--- NOTE | 2021-07-11 00:23 | NUR ---
Paged Dr. King at [phone]. Waiting for call back
[2021-07-11] MEDS ORDERED: POTASSIUM CHLORIDE 100 ML ONE (00:35)
[2021-07-11] MEDS ORDERED: CEFTRIAXONE /D5W 50ML IVPB **ER PYXIS IV ONE (00:35)
[2021-07-11] MEDS: POTASSIUM CHLORIDE 50 ML IV SCH (00:50)
--- NOTE | 2021-07-11 03:00 | NUR ---
Phone consent received from brother (Volodymyr) for blood transfusion.
--- NOTE | 2021-07-11 03:35 | NUR ---
Report given to Bryce POWERS
--- NOTE | 2021-07-11 03:56 | NUR ---
Pt. admitted to [facility] room 312, under care of Dr. King Belongs List completed Denies chest pain or SOB. All extremities WNL. Afebrile.
--- NOTE | 2021-07-11 04:00 | NUR ---
[facility] of Dr Woodson, patient awake but forgetful, no sob no chest pain, patient has left buttock excoriation, and left foot wound, cont to monitor.
--- NOTE | 2021-07-11 04:24 | NUR ---
Patient awake but forgetful no sob no chest pain, complain of pain on left hip when turn on the side, will start blood transfusion order by ER cont to monitor.
--- NOTE | 2021-07-11 04:40 | NUR ---
Patient started blood transfusion with adverse reaction noted, at this time, no sob no chest pain, no rashes, tolerate well cont to monitor.
--- NOTE | 2021-07-11 05:00 | NUR ---
charge account authorizer called exchange for Christine Taylor awaiting for return call.
--- NOTE | 2021-07-11 06:00 | NUR ---
Place a call again for Dr King waiting for response.
--- NOTE | 2021-07-11 06:59 | NUR ---
Transfused one unit, tolerate well no adverse reaction noted.
[2021-07-11] MEDS: REMEDY ESSENTIAL ZINC PASTE 113 GM TOP SCH ×2 (09:07→20:33)
--- NOTE | 2021-07-11 09:49 | NUR ---
returned call to [facility] all questions answered, attempted to call xochitl zuleta with no answer.
[2021-07-11] MEDS ORDERED: FLEET ENEMA 133 ML BOTTLE RC PRN (10:00)
[2021-07-11] MEDS ORDERED: ACETAMINOPHEN 325 MG TABLET-SA PATIENTS-PAIN ONLY PO PRN (10:00)
[2021-07-11] MEDS ORDERED: DEXTROSE 50% 50 ML DISP.SYRIN IV PRN (10:00)
[2021-07-11] MEDS ORDERED: REMEDY ESSENTIAL ZINC PASTE 113 GM TP PRN (10:00)
[2021-07-11] MEDS ORDERED: ONDANSETRON 4 MG/2 ML VIAL IV PRN (10:00)
[2021-07-11] MEDS ORDERED: MAGNESIUM HYDROXIDE 30 ML LIQUID UDC PO PRN ×2 (10:00)
[2021-07-11] MEDS ORDERED: BISACODYL 10 MG SUPP.RECT RC PRN (10:00)
[2021-07-11] MEDS: BLOOD SUGAR DIAGNOSTIC 1 EACH STRIP VI SCH ×3 (11:00→20:34)
[2021-07-11] MEDS: INSULIN REGULAR, HUMAN 300 UNIT/3 ML VIAL SQ PRN ×3 (11:08→20:35)
[2021-07-11] MEDS: ENOXAPARIN SODIUM 40 MG/0.4 ML DISP.SYRIN SQ SCH (12:09)
[2021-07-11] MEDS: METFORMIN XR 500 MG TAB.SR.24H PO SCH (17:06)
[2021-07-11] MEDS: CARVEDILOL 12.5 MG TABLET PO SCH (17:07)
[2021-07-11] MEDS: ATORVASTATIN 40 MG TABLET PO SCH (20:41)
[2021-07-11] MEDS: ZOLPIDEM 5 MG TABLET PO PRN (20:42)
[2021-07-11] MEDS ORDERED: Medication Not On Formulary EA (Atorvastatin Calcium (Lipitor) 80 MG) PO SCH (21:00)
[2021-07-12] MEDS: CEFTRIAXONE 1 G in IV DEXTROSE 5% 50 ML IV SCH (00:48)
[2021-07-12] MEDS: ACETAMINOPHEN 325 MG TABLET PO PRN (00:48)
[2021-07-12 04:00] VITALS: BP_SYST 129; BP_SYST 177; BP_DIAS 65; BP_DIAS 78
[2021-07-12] MEDS: NIFEdipine XL 30 MG TABSR PO SCH (05:27)
[2021-07-12 06:39] LABS: HEMATOCRIT 28.6 % (31.2-41.9); MEAN CORPUSCULAR HEMOGLOBIN 26.6 uug (24.7-32.8); MEAN CORPUSCULAR VOLUME 82.3 fL (75.5-95.3); PLATELET COUNT (AUTO) 586 K/uL (179-408)
[2021-07-12] MEDS: BLOOD SUGAR DIAGNOSTIC 1 EACH STRIP VI SCH ×4 (07:15→21:12)
[2021-07-12] MEDS: INSULIN REGULAR, HUMAN 300 UNIT/3 ML VIAL SQ PRN ×4 (08:15→21:18)
[2021-07-12] MEDS: ENOXAPARIN SODIUM 40 MG/0.4 ML DISP.SYRIN SQ SCH (08:16)
[2021-07-12] MEDS: FAMOTIDINE 20 MG TABLET PO SCH (08:24)
[2021-07-12] MEDS: PIOGLITAZONE HCL 15 MG TABLET PO SCH (08:24)
[2021-07-12] MEDS: ASPIRIN 81 MG TAB.CHEW PO SCH (08:24)
[2021-07-12] MEDS: CLOPIDOGREL 75 MG TABLET PO SCH (08:24)
[2021-07-12] MEDS: REMEDY ESSENTIAL ZINC PASTE 113 GM TOP SCH ×2 (08:25→21:04)
[2021-07-12] MEDS: CARVEDILOL 12.5 MG TABLET PO SCH ×2 (08:26→17:47)
--- NOTE | 2021-07-12 08:30 | NUR ---
RECEIVED PATIENT IN BED AWAKE ALERT TO SELF WITH CONFUSSION AND DISORIENTATION ABLE TO MAKE SIMPLE NEEDS KNOWN COMPLIANT WITH MEDICATIONS ON ROOM AIR WITH NO SOB CALL LIGHTS AND PERSONAL BELONGINGS ARE WITHIN EASY REACH MADE COMFORTABLE WILL CONTINUE TO OBSERVE.
[2021-07-12 08:36] LABS: CREATININE 0.8 mg/dL (0.6-1.3); MAGNESIUM 1.6 mg/dL (1.8-2.4); PHOSPHOROUS 2.5 mg/dL (2.5-4.9); POTASSIUM 3.6 mmol/L (3.5-5.1)
[2021-07-12] MEDS ORDERED: MAGNESIUM OXIDE 400 MG TABLET PO ONE (10:00)
[2021-07-12 11:56] VITALS: BP 111/57
[2021-07-12 16:00] VITALS: BP 141/63
[2021-07-12] MEDS: METFORMIN XR 500 MG TAB.SR.24H PO SCH (17:47)
--- NOTE | 2021-07-12 18:00 | NUR ---
ATE HER DINNER COMPLIANT WITH MEDICATIONS DENIES PAIN OR DISCOMFORTS NO SHORTNESS OF BREATH O2 SAT HAS BEEN ADEQUATE NO CHANGES IN PATIENTS CONDITION AT THIS TIME.
[2021-07-12 20:00] VITALS: BP 146/61
--- NOTE | 2021-07-12 20:30 | NUR ---
RECEIVED PATIENT IN BED. AWAKE, ALERT, WITH FLAT AFFECT NOTED. PATIENT APPEARS TO BE CONFUSED AND DISORIENTED. REORIENTED PATIENT ACCORDINGLY. RFA, 20, PATENT AND INTACT. NO SOB, CHEST PAIN OR DIZZINESS NOTED. L BUTTOCK EXCORIATION NOTED. FUNGAL INFECTION ON THE FINGERS OF THE L HAND NOTED. SAFETY PRECAUTIONS INITIATED. WILL CONTINUE TO MONITOR.
[2021-07-12] MEDS: ATORVASTATIN 40 MG TABLET PO SCH (21:03)
[2021-07-12] MEDS: FERROUS SULFATE 325 MG TABEC PO SCH (21:03)
[2021-07-13] MEDS: CEFTRIAXONE 1 G in IV DEXTROSE 5% 50 ML IV SCH (00:50)
[2021-07-13 04:00] VITALS: BP 159/87
--- NOTE | 2021-07-13 05:43 | NUR ---
PATIENT SLEPT THROUGH THE NIGHT, WITH NO COMPLAINTS NOTED. COMPLIANT WITH PO MEDICATIONS. ANTIBIOTICS GIVEN AND TOLERATED WELL. IV ACCESS PATENT AND INTACT. ORAL CARE DONE. BOWEL MOVEMENT X2. SAFETY PRECAUTIONS MAINTAINED. WILL ENDORSE TO DAY SHIFT.
[2021-07-13] MEDS: BLOOD SUGAR DIAGNOSTIC 1 EACH STRIP VI SCH ×4 (06:24→21:17)
[2021-07-13] MEDS: CARVEDILOL 12.5 MG TABLET PO SCH ×2 (06:46→17:02)
--- NOTE | 2021-07-13 06:49 | NUR ---
BP ELEVATED. 159/87MMHG WITH HR OF 82BPM, MORNING SCHEDULE OF COREG GIVEN TO REDUCE BP. WILL ENDORSE TO DAY SHIFT.
[2021-07-13 07:27] LABS: THYROID STIMULATING HORMONE 3.271 mIU/mL (0.358-3.740)
--- NOTE | 2021-07-13 07:30 | NUR ---
RECEIVED IN BED AWAKE WITH DISORIENTATION NO S/S OF PAIN OR DISCOMFORTS AT THIS TIME.NO S/S OF HYPO/HYPERGLYCEMIC REACTIONS REPOSITIONED Q2H MADE COMFORTABLE.DR HIRSCH WAS HERE AWARE THAT PATIENTS DAUGHTER WAS HERE YESTERDAY AND WANTED TO TALK WITH HIM ALSO PATIENTS DAUGHTER STATED THAT SHE OBSERVED THAT HER MOM HAD SOME LABORED BREATHING I DID NOT OBSERVE THIS AND O2 SAT WAS CHECKED AND ITS 96-97 PERCENT ON ROOM AIR WILL CONTINUE TO OBSERVE AND PROVIDE COMFORT
[2021-07-13] MEDS: INSULIN REGULAR, HUMAN 300 UNIT/3 ML VIAL SQ PRN ×4 (07:58→21:20)
[2021-07-13] MEDS: ASPIRIN 81 MG TAB.CHEW PO SCH (08:00)
[2021-07-13] MEDS: ENOXAPARIN SODIUM 40 MG/0.4 ML DISP.SYRIN SQ SCH (08:00)
[2021-07-13] MEDS: NIFEdipine XL 30 MG TABSR PO SCH (08:01)
[2021-07-13] MEDS: FAMOTIDINE 20 MG TABLET PO SCH (08:01)
[2021-07-13] MEDS: PIOGLITAZONE HCL 15 MG TABLET PO SCH (08:01)
[2021-07-13] MEDS: CLOPIDOGREL 75 MG TABLET PO SCH (08:01)
[2021-07-13] MEDS: FERROUS SULFATE 325 MG TABEC PO SCH ×2 (08:01→21:17)
[2021-07-13] MEDS: REMEDY ESSENTIAL ZINC PASTE 113 GM TOP SCH ×2 (08:02→21:18)
[2021-07-13 12:14] VITALS: BP 117/54
[2021-07-13 15:27] VITALS: BP 146/66
[2021-07-13] MEDS: METFORMIN XR 500 MG TAB.SR.24H PO SCH (17:01)
--- NOTE | 2021-07-13 17:30 | NUR ---
SEEN BY DR JEAN WITH NEW ORDER FOR FERRLICT AND NOTED.
[2021-07-13] MEDS: SOD FERRIC GLUC COMPLX/SUCROSE 125 MG in IV NORMAL SALINE 100 ML IV SCH (17:56)
--- NOTE | 2021-07-13 19:00 | NUR ---
FERRLICIT INFUSED ORDERED WITH NO ADVERSE EFFECTS AT THIS TIME.
--- NOTE | 2021-07-13 19:30 | NUR ---
Received in bed in no acute distress. AAO to first name only, is labile with non coherent speech. Right FA 20 gauge IV patent and intact. no facial grimacing noted. Incontinent of bladder, pending stool collection for OB. Call light within reach.
[2021-07-13 20:43] VITALS: BP 145/67
[2021-07-13] MEDS: ATORVASTATIN 40 MG TABLET PO SCH (21:17)
[2021-07-14] MEDS: CEFTRIAXONE 1 G in IV DEXTROSE 5% 50 ML IV SCH (00:26)
[2021-07-14 04:28] VITALS: BP 136/66
[2021-07-14 05:59] LABS: HEMATOCRIT 27.9 % (31.2-41.9); MEAN CORPUSCULAR HEMOGLOBIN 26.5 uug (24.7-32.8); MEAN CORPUSCULAR VOLUME 82.4 fL (75.5-95.3); PLATELET COUNT (AUTO) 475 K/uL (179-408)
[2021-07-14 06:18] LABS: CREATININE 0.6 mg/dL (0.6-1.3); POTASSIUM 3.6 mmol/L (3.5-5.1)
[2021-07-14] MEDS: BLOOD SUGAR DIAGNOSTIC 1 EACH STRIP VI SCH ×4 (06:30→20:27)
--- NOTE | 2021-07-14 06:47 | NUR ---
Patient did not have a BM this shift. Slept intermittently, noted with continued confusion, able to state full name. Blood sugar checks completed, No s/s of hypo/hyperglycemia. Frequent checks made for safety.
--- NOTE | 2021-07-14 07:30 | NUR ---
RECEIVED IN BED AWAKE ALERT BUT IS DISORIENTED BUT ABLE TO MAKE SIMPLE NEEDS KNOWN ALL OTHER NEEDS ANTICIPATED AND SATISFIED TURNED AND REPOSITIONED Q2H FOR COMFORT DEIENS DISCOMFORTS AT THIS TIME NO S/S OF HYPO/HYPERGLYCEMIC REACTIONS AT THIS TIME MADE COMFORTABLE WILL CONTINUE TO OBSERVE.
[2021-07-14 08:06] LABS: A/G RATIO 0.6 (0.7-1.7); ALBUMIN 2.3 g/dL (2.9-4.4); ALPHA-1-GLOBULIN 0.4 g/dL (0.0-0.4); ALPHA-2-GLOBULIN 1.5 g/dL (0.4-1.0); GAMMA GLOBULIN 0.8 g/dL (0.4-1.8); GLOBULIN, TOTAL 3.7 g/dL (2.2-3.9); M-SPIKE 0.1 g/dL (Not Observed)
[2021-07-14] MEDS: PIOGLITAZONE HCL 15 MG TABLET PO SCH (08:49)
[2021-07-14] MEDS: CLOPIDOGREL 75 MG TABLET PO SCH (08:49)
[2021-07-14] MEDS: FAMOTIDINE 20 MG TABLET PO SCH (08:50)
[2021-07-14] MEDS: NIFEdipine XL 30 MG TABSR PO SCH (08:50)
[2021-07-14] MEDS: CARVEDILOL 12.5 MG TABLET PO SCH ×2 (08:50→17:06)
[2021-07-14] MEDS: ASPIRIN 81 MG TAB.CHEW PO SCH (08:50)
[2021-07-14] MEDS: FERROUS SULFATE 325 MG TABEC PO SCH ×2 (08:50→20:25)
[2021-07-14] MEDS: REMEDY ESSENTIAL ZINC PASTE 113 GM TOP SCH ×3 (08:51→20:26)
[2021-07-14] MEDS: GLUCERNA SHAKE VANILLA 237 ML CAN PO SCH (08:55)
[2021-07-14] MEDS: ENOXAPARIN SODIUM 40 MG/0.4 ML DISP.SYRIN SQ SCH (08:56)
[2021-07-14 12:09] VITALS: BP 142/67
[2021-07-14] MEDS: INSULIN REGULAR, HUMAN 300 UNIT/3 ML VIAL SQ PRN ×3 (12:13→20:31)
--- NOTE | 2021-07-14 12:29 | NUR ---
WOUND CARE CONSULT: PT PRESENTS WITH LEFT BUTTOCK AND LEFT FOOT WOUNDS, PRESENT ON ADMISSION. PER SENDING FACILITY, LEFT BUTTOCK WOUND IS STAGE 3 PRESSURE ULCER. PT HAVING BM AT THIS TIME AND UNABLE TO VISUALIZE. PT UNCOOPERATIVE AT TIMES. PT REFUSED TO HAVE LEFT LOWER EXTREMITY DRESSING REMOVED (DRY AND INTACT). DR ARCEO NOTIFIED OF SURGICAL CONSULT AND DR EDWARD OF DPM CONSULT. RECOMMENDATIONS MADE FOR SKIN PROTECTION. DISCUSSED WITH NURSING STAFF. MD IN AGREEMENT WITH PLAN OF CARE.
[2021-07-14] MEDS: SOD FERRIC GLUC COMPLX/SUCROSE 125 MG in IV NORMAL SALINE 100 ML IV SCH (13:46)
--- NOTE | 2021-07-14 14:15 | NUR ---
WOUND CARE KALINA HERE AND SEEN PATIENT WITH NEW ORDERS AND NOTED.
[2021-07-14 15:57] VITALS: BP 144/87
[2021-07-14] MEDS: METFORMIN XR 500 MG TAB.SR.24H PO SCH (17:05)
--- NOTE | 2021-07-14 18:10 | NUR ---
INCONTINENT OF SMALL BOWEL MOVEMENT SPECIMEN OBTAINED AND SENT TO THE LAB TURNED REPOSITIONED REMAIN ALERT BUT IS CONFUSED ALL NEEDS ANTICIPATED AND SATISFIED MADE COMFORTABLE WILL CONTINUE TO OBSERVE.
[2021-07-14 18:13] LABS: *OCCULT BLOOD STOOL NEGATIVE (NEGATIVE)
--- NOTE | 2021-07-14 19:46 | NUR ---
Received patient in bed, comfortable. AAO to person, denies any pain. Speech remains incoherent. Right FA IV intact and patent. On RA, no SOB. Heel protectors on. Safety measures initiated. Call light within reach.
[2021-07-14] MEDS: ATORVASTATIN 40 MG TABLET PO SCH (20:25)
[2021-07-14 20:28] VITALS: BP 144/67
[2021-07-15] MEDS: CEFTRIAXONE 1 G in IV DEXTROSE 5% 50 ML IV SCH (00:02)
[2021-07-15 04:00] VITALS: BP 166/69
[2021-07-15] MEDS: BLOOD SUGAR DIAGNOSTIC 1 EACH STRIP VI SCH ×4 (06:31→20:10)
--- NOTE | 2021-07-15 06:32 | NUR ---
Patient slept intermittently and well. No significant events. Left buttocks excoriation with good progress.
--- NOTE | 2021-07-15 07:30 | NUR ---
Received patient in bed awake, alert and oriented times 1. Patient is confused. No sign of distress noted at this time. Pt is on room air. Safety precautions are in place. Will continue to monitor.
[2021-07-15] MEDS: ENOXAPARIN SODIUM 40 MG/0.4 ML DISP.SYRIN SQ SCH (10:36)
[2021-07-15] MEDS: PIOGLITAZONE HCL 15 MG TABLET PO SCH (10:37)
[2021-07-15] MEDS: CLOPIDOGREL 75 MG TABLET PO SCH (10:37)
[2021-07-15] MEDS: FERROUS SULFATE 325 MG TABEC PO SCH ×2 (10:37→20:04)
[2021-07-15] MEDS: ASPIRIN 81 MG TAB.CHEW PO SCH (10:37)
[2021-07-15] MEDS: GLUCERNA SHAKE VANILLA 237 ML CAN PO SCH (10:38)
[2021-07-15] MEDS: FAMOTIDINE 20 MG TABLET PO SCH (10:38)
[2021-07-15] MEDS: REMEDY ESSENTIAL ZINC PASTE 113 GM TOP SCH ×6 (10:39→20:25)
[2021-07-15] MEDS: NIFEdipine XL 30 MG TABSR PO SCH (10:43)
[2021-07-15] MEDS: CARVEDILOL 12.5 MG TABLET PO SCH ×2 (10:44→18:35)
[2021-07-15 12:00] VITALS: BP 159/66
[2021-07-15] MEDS: INSULIN REGULAR, HUMAN 300 UNIT/3 ML VIAL SQ PRN ×3 (13:58→20:14)
[2021-07-15] MEDS: SOD FERRIC GLUC COMPLX/SUCROSE 125 MG in IV NORMAL SALINE 100 ML IV SCH (14:09)
--- NOTE | 2021-07-15 15:49 | NUR ---
07/15/2021 1545 hrs Patient refused bone survey exam. Patient does not want to be moved or positioned in any way.
[2021-07-15 15:57] VITALS: BP 143/66
--- NOTE | 2021-07-15 15:57 | NUR ---
Patient refused exam @1545 hrs. I personally went up to the room and spoke to the patient and explain the bone survey exam. patient does not want to be moved in any position.
--- NOTE | 2021-07-15 17:59 | NUR ---
Pt IV infiltrated. Will try reinsertion.
[2021-07-15] MEDS: METFORMIN XR 500 MG TAB.SR.24H PO SCH (18:34)
[2021-07-15] MEDS: ATORVASTATIN 40 MG TABLET PO SCH (20:04)
--- NOTE | 2021-07-15 20:12 | NUR ---
Patient in bed alert x1, confused and disoriented. Re-oriented to place/unit and time.On Ra.No s/s of distress noted.Iv on right hand patent and intact.Blood glucose 179 .Insulin given per sliding scale .Patient compliant with medication.Call light with in reach . Will continue to monitor.
[2021-07-15 20:13] VITALS: BP 108/62
[2021-07-15] MEDS: ACETAMINOPHEN 325 MG TABLET PO PRN (22:04)
[2021-07-16] MEDS: CEFTRIAXONE 1 G in IV DEXTROSE 5% 50 ML IV SCH (01:52)
[2021-07-16 04:49] VITALS: BP 136/70
[2021-07-16] MEDS: BLOOD SUGAR DIAGNOSTIC 1 EACH STRIP VI SCH ×4 (06:39→20:19)
[2021-07-16] MEDS: CARVEDILOL 12.5 MG TABLET PO SCH ×2 (08:10→17:09)
[2021-07-16] MEDS: PIOGLITAZONE HCL 15 MG TABLET PO SCH (08:10)
[2021-07-16] MEDS: CLOPIDOGREL 75 MG TABLET PO SCH (08:10)
[2021-07-16] MEDS: FERROUS SULFATE 325 MG TABEC PO SCH ×2 (08:10→20:29)
[2021-07-16] MEDS: REMEDY ESSENTIAL ZINC PASTE 113 GM TOP SCH ×4 (08:10→20:30)
[2021-07-16] MEDS: ASPIRIN 81 MG TAB.CHEW PO SCH (08:10)
[2021-07-16] MEDS: FAMOTIDINE 20 MG TABLET PO SCH (08:10)
[2021-07-16] MEDS: NIFEdipine XL 30 MG TABSR PO SCH (08:10)
[2021-07-16] MEDS: ENOXAPARIN SODIUM 40 MG/0.4 ML DISP.SYRIN SQ SCH (08:11)
[2021-07-16] MEDS: GLUCERNA SHAKE VANILLA 237 ML CAN PO SCH (08:11)
[2021-07-16] MEDS ORDERED: FLUCONAZOLE 200 MG TABLET PO SCH (09:00)
[2021-07-16 09:34] LABS: MEAN CORPUSCULAR HEMOGLOBIN 27.2 uug (24.7-32.8); MEAN CORPUSCULAR VOLUME 83.6 fL (75.5-95.3); PLATELET COUNT (AUTO) 538 K/uL (179-408)
[2021-07-16] MEDS: INSULIN REGULAR, HUMAN 300 UNIT/3 ML VIAL SQ PRN ×3 (11:40→20:22)
[2021-07-16 12:00] VITALS: BP 114/49
[2021-07-16] MEDS: SOD FERRIC GLUC COMPLX/SUCROSE 125 MG in IV NORMAL SALINE 100 ML IV SCH (14:07)
[2021-07-16] MEDS: MICAFUNGIN SODIUM 100 MG in IV NORMAL SALINE 100 ML IV SCH (14:07)
[2021-07-16 16:00] VITALS: BP 119/77
[2021-07-16] MEDS: METFORMIN XR 500 MG TAB.SR.24H PO SCH (17:09)
[2021-07-16] MEDS: ATORVASTATIN 40 MG TABLET PO SCH (20:29)
[2021-07-16 20:42] VITALS: BP 130/62
[2021-07-17] MEDS: CEFTRIAXONE 1 G in IV DEXTROSE 5% 50 ML IV SCH (00:01)
[2021-07-17 04:00] VITALS: BP 176/73
[2021-07-17] MEDS: BLOOD SUGAR DIAGNOSTIC 1 EACH STRIP VI SCH ×4 (06:24→20:16)
[2021-07-17] MEDS: ASPIRIN 81 MG TAB.CHEW PO SCH (08:14)
[2021-07-17] MEDS: CARVEDILOL 12.5 MG TABLET PO SCH ×2 (08:14→17:01)
[2021-07-17] MEDS: NIFEdipine XL 30 MG TABSR PO SCH (08:14)
[2021-07-17] MEDS: FERROUS SULFATE 325 MG TABEC PO SCH ×2 (08:15→20:13)
[2021-07-17] MEDS: FAMOTIDINE 20 MG TABLET PO SCH (08:15)
[2021-07-17] MEDS: CLOPIDOGREL 75 MG TABLET PO SCH (08:15)
[2021-07-17] MEDS: PIOGLITAZONE HCL 15 MG TABLET PO SCH (08:15)
[2021-07-17] MEDS: GLUCERNA SHAKE VANILLA 237 ML CAN PO SCH ×3 (08:15→16:22)
[2021-07-17] MEDS: REMEDY ESSENTIAL ZINC PASTE 113 GM TOP SCH ×3 (08:16→20:13)
[2021-07-17] MEDS: ENOXAPARIN SODIUM 40 MG/0.4 ML DISP.SYRIN SQ SCH (08:16)
[2021-07-17 10:29] VITALS: BP 163/68
[2021-07-17] MEDS: INSULIN REGULAR, HUMAN 300 UNIT/3 ML VIAL SQ PRN ×3 (11:40→20:17)
[2021-07-17] MEDS: MICAFUNGIN SODIUM 100 MG in IV NORMAL SALINE 100 ML IV SCH (13:07)
[2021-07-17] MEDS: SOD FERRIC GLUC COMPLX/SUCROSE 125 MG in IV NORMAL SALINE 100 ML IV SCH (13:52)
[2021-07-17 16:14] VITALS: BP 119/56
[2021-07-17] MEDS: METFORMIN XR 500 MG TAB.SR.24H PO SCH (17:04)
[2021-07-17] MEDS: ACETAMINOPHEN 325 MG TABLET PO PRN ×2 (17:32→21:49)
--- NOTE | 2021-07-17 19:30 | NUR ---
Received patient lying in bed. AAO to self only, mainly confused. In no acute distress. Denies any SOB. Complaining of mild tooth pain. IV site on right wrist area intact and patent. Needs assessed and attended to. Safety measure initiated and call light within reached.
[2021-07-17] MEDS: ATORVASTATIN 40 MG TABLET PO SCH (20:13)
[2021-07-17 20:14] VITALS: BP 142/67
[2021-07-18] MEDS: CEFTRIAXONE 1 G in IV DEXTROSE 5% 50 ML IV SCH (00:14)
[2021-07-18 05:25] VITALS: BP 159/65
[2021-07-18 06:11] LABS: HEMATOCRIT 29.6 % (31.2-41.9); MEAN CORPUSCULAR VOLUME 84.1 fL (75.5-95.3); PLATELET COUNT (AUTO) 559 K/uL (179-408)
--- NOTE | 2021-07-18 06:12 | NUR ---
AO to self only, mainly confused. In no acute distress. No further complain of toothache after Tylenol 650mg PO was given. Denies any SOB. IV site on right wrist area intact and patent. NO adverse reaction noted form IV antibiotic. Needs assessed and attended to. Safety measure maintained and call light within reached.
[2021-07-18] MEDS: BLOOD SUGAR DIAGNOSTIC 1 EACH STRIP VI SCH ×4 (06:30→20:22)
[2021-07-18] MEDS: INSULIN REGULAR, HUMAN 300 UNIT/3 ML VIAL SQ PRN ×3 (07:24→20:31)
[2021-07-18] MEDS: ASPIRIN 81 MG TAB.CHEW PO SCH (08:13)
[2021-07-18] MEDS: GLUCERNA SHAKE VANILLA 237 ML CAN PO SCH ×2 (08:13→16:02)
[2021-07-18] MEDS: CARVEDILOL 12.5 MG TABLET PO SCH ×2 (08:13→17:09)
[2021-07-18] MEDS: FAMOTIDINE 20 MG TABLET PO SCH (08:13)
[2021-07-18] MEDS: PIOGLITAZONE HCL 15 MG TABLET PO SCH (08:13)
[2021-07-18] MEDS: CLOPIDOGREL 75 MG TABLET PO SCH (08:13)
[2021-07-18] MEDS: FERROUS SULFATE 325 MG TABEC PO SCH ×2 (08:13→20:19)
[2021-07-18] MEDS: NIFEdipine XL 30 MG TABSR PO SCH (08:13)
[2021-07-18] MEDS: ENOXAPARIN SODIUM 40 MG/0.4 ML DISP.SYRIN SQ SCH (08:14)
[2021-07-18] MEDS: REMEDY ESSENTIAL ZINC PASTE 113 GM TOP SCH ×2 (08:38→20:20)
[2021-07-18 11:46] VITALS: BP 179/82
[2021-07-18 12:34] VITALS: BP 150/82
[2021-07-18] MEDS: MICAFUNGIN SODIUM 100 MG in IV NORMAL SALINE 100 ML IV SCH (13:22)
[2021-07-18] MEDS: SOD FERRIC GLUC COMPLX/SUCROSE 125 MG in IV NORMAL SALINE 100 ML IV SCH (14:15)
[2021-07-18 16:12] VITALS: BP 123/61
[2021-07-18] MEDS: METFORMIN XR 500 MG TAB.SR.24H PO SCH (17:09)
[2021-07-18 20:18] VITALS: BP 129/59
[2021-07-18 20:19] VITALS: BP 148/74
[2021-07-18] MEDS: ATORVASTATIN 40 MG TABLET PO SCH (20:19)
[2021-07-19] MEDS: CEFTRIAXONE 1 G in IV DEXTROSE 5% 50 ML IV SCH (02:00)
[2021-07-19 04:42] VITALS: BP 152/60
--- NOTE | 2021-07-19 06:06 | NUR ---
Slept throughout the night. Able to follow simple commands. Denies pain or SOB. No distress noted. IV site intact. Safety protocols maintained. Will endorse to day shift.
[2021-07-19] MEDS: BLOOD SUGAR DIAGNOSTIC 1 EACH STRIP VI SCH ×4 (06:47→20:18)
[2021-07-19] MEDS: ASPIRIN 81 MG TAB.CHEW PO SCH (08:29)
[2021-07-19] MEDS: FAMOTIDINE 20 MG TABLET PO SCH (08:29)
[2021-07-19] MEDS: PIOGLITAZONE HCL 15 MG TABLET PO SCH (08:29)
[2021-07-19] MEDS: NIFEdipine XL 30 MG TABSR PO SCH (08:29)
[2021-07-19] MEDS: CLOPIDOGREL 75 MG TABLET PO SCH (08:29)
[2021-07-19] MEDS: CARVEDILOL 12.5 MG TABLET PO SCH ×2 (08:29→17:08)
[2021-07-19] MEDS: FERROUS SULFATE 325 MG TABEC PO SCH ×2 (08:29→20:24)
[2021-07-19] MEDS: REMEDY ESSENTIAL ZINC PASTE 113 GM TOP SCH ×2 (08:30→20:18)
[2021-07-19] MEDS: ENOXAPARIN SODIUM 40 MG/0.4 ML DISP.SYRIN SQ SCH (08:30)
[2021-07-19] MEDS: GLUCERNA SHAKE VANILLA 237 ML CAN PO SCH ×2 (08:30→16:00)
[2021-07-19] MEDS: INSULIN REGULAR, HUMAN 300 UNIT/3 ML VIAL SQ PRN ×3 (08:30→15:51)
[2021-07-19 11:56] VITALS: BP 139/58
[2021-07-19] MEDS: MICAFUNGIN SODIUM 100 MG in IV NORMAL SALINE 100 ML IV SCH (13:09)
[2021-07-19 15:19] VITALS: BP 130/67
[2021-07-19] MEDS: METFORMIN XR 500 MG TAB.SR.24H PO SCH (17:08)
[2021-07-19 20:15] VITALS: BP 158/89
[2021-07-19] MEDS: ACETAMINOPHEN 325 MG TABLET PO PRN (20:23)
[2021-07-19] MEDS: ATORVASTATIN 40 MG TABLET PO SCH (20:24)
--- NOTE | 2021-07-19 21:00 | NUR ---
DR. JEAN AT BEDSIDE TO ASSESS PATIENT. PER DR. JEAN, PATIENTS FAMILY OK WITH PROCEDURE, DR. JEAN WILL SPEAK WITH DR. ENRIQUEZ, AND PLAN FOR BONE MARROW BIOPSY ON TUESDAY PER DT. JEAN. ALL NEEDS ATTENDED, WILL CONTINUE TO MONITOR AND ASSESS.
[2021-07-19] MEDS: ZOLPIDEM 5 MG TABLET PO PRN (21:02)
[2021-07-20] MEDS: CEFTRIAXONE 1 G in IV DEXTROSE 5% 50 ML IV SCH (01:05)
[2021-07-20 04:15] VITALS: BP 155/82
[2021-07-20] MEDS: BLOOD SUGAR DIAGNOSTIC 1 EACH STRIP VI SCH ×4 (06:24→20:27)
[2021-07-20] MEDS: INSULIN REGULAR, HUMAN 300 UNIT/3 ML VIAL SQ PRN ×4 (07:40→20:31)
[2021-07-20] MEDS: CARVEDILOL 12.5 MG TABLET PO SCH ×2 (08:00→17:14)
[2021-07-20] MEDS: CLOPIDOGREL 75 MG TABLET PO SCH (08:00)
[2021-07-20] MEDS: FERROUS SULFATE 325 MG TABEC PO SCH ×2 (08:00→20:30)
[2021-07-20] MEDS: PIOGLITAZONE HCL 15 MG TABLET PO SCH (08:00)
[2021-07-20] MEDS: FAMOTIDINE 20 MG TABLET PO SCH (08:00)
[2021-07-20] MEDS: ASPIRIN 81 MG TAB.CHEW PO SCH (08:00)
[2021-07-20] MEDS: NIFEdipine XL 30 MG TABSR PO SCH (08:00)
[2021-07-20] MEDS: GLUCERNA SHAKE VANILLA 237 ML CAN PO SCH ×2 (08:01→16:30)
[2021-07-20] MEDS: ENOXAPARIN SODIUM 40 MG/0.4 ML DISP.SYRIN SQ SCH (08:03)
[2021-07-20] MEDS: REMEDY ESSENTIAL ZINC PASTE 113 GM TOP SCH ×2 (09:08→20:28)
[2021-07-20 11:46] VITALS: BP 108/51
[2021-07-20] MEDS: MICAFUNGIN SODIUM 100 MG in IV NORMAL SALINE 100 ML IV SCH (13:11)
[2021-07-20 16:18] VITALS: BP 161/81
[2021-07-20] MEDS: METFORMIN XR 500 MG TAB.SR.24H PO SCH (17:14)
[2021-07-20 20:00] VITALS: BP 130/57
[2021-07-20] MEDS: ATORVASTATIN 40 MG TABLET PO SCH (20:30)
[2021-07-21 04:00] VITALS: BP 142/66
[2021-07-21] MEDS: BLOOD SUGAR DIAGNOSTIC 1 EACH STRIP VI SCH ×4 (06:31→21:04)
[2021-07-21] MEDS: NIFEdipine XL 30 MG TABSR PO SCH (08:28)
[2021-07-21] MEDS: CLOPIDOGREL 75 MG TABLET PO SCH (08:28)
[2021-07-21] MEDS: ASPIRIN 81 MG TAB.CHEW PO SCH (08:28)
[2021-07-21] MEDS: CARVEDILOL 12.5 MG TABLET PO SCH ×2 (08:28→18:19)
[2021-07-21] MEDS: FAMOTIDINE 20 MG TABLET PO SCH (08:29)
[2021-07-21] MEDS: FERROUS SULFATE 325 MG TABEC PO SCH ×2 (08:29→20:58)
[2021-07-21] MEDS: PIOGLITAZONE HCL 15 MG TABLET PO SCH (08:29)
[2021-07-21] MEDS: GLUCERNA SHAKE VANILLA 237 ML CAN PO SCH ×2 (08:29→16:26)
[2021-07-21] MEDS: REMEDY ESSENTIAL ZINC PASTE 113 GM TOP SCH ×2 (08:30→20:59)
[2021-07-21] MEDS: ENOXAPARIN SODIUM 40 MG/0.4 ML DISP.SYRIN SQ SCH (08:39)
[2021-07-21 12:00] VITALS: BP 147/71
[2021-07-21] MEDS: INSULIN REGULAR, HUMAN 300 UNIT/3 ML VIAL SQ PRN ×3 (13:20→21:06)
[2021-07-21] MEDS: MICAFUNGIN SODIUM 100 MG in IV NORMAL SALINE 100 ML IV SCH (13:47)
[2021-07-21 16:00] VITALS: BP 103/53
[2021-07-21] MEDS: METFORMIN XR 500 MG TAB.SR.24H PO SCH (18:18)
--- NOTE | 2021-07-21 20:00 | NUR ---
Patient awake, no sob no chest pain, patient complain of pain on left foot when touch, handle patient gently. Patient requires total assist with adl's, turn and reposition, kept clean and dry, tx continue on left foot wound, cont to monitor.
[2021-07-21 20:03] VITALS: BP 132/55
[2021-07-21] MEDS: ATORVASTATIN 40 MG TABLET PO SCH (20:58)
[2021-07-22 04:00] VITALS: BP 157/81
[2021-07-22] MEDS: BLOOD SUGAR DIAGNOSTIC 1 EACH STRIP VI SCH ×4 (06:27→20:17)
--- NOTE | 2021-07-22 06:58 | NUR ---
Patient asleep but arousable, no complain of pain, requires total assist with adl's. kept comfortable, cont to monitor.
[2021-07-22 07:40] VITALS: BP 175/89
[2021-07-22] MEDS: FAMOTIDINE 20 MG TABLET PO SCH (08:17)
[2021-07-22] MEDS: ASPIRIN 81 MG TAB.CHEW PO SCH (08:17)
[2021-07-22] MEDS: FERROUS SULFATE 325 MG TABEC PO SCH ×2 (08:17→20:17)
[2021-07-22] MEDS: PIOGLITAZONE HCL 15 MG TABLET PO SCH (08:17)
[2021-07-22] MEDS: CARVEDILOL 12.5 MG TABLET PO SCH ×2 (08:17→17:54)
[2021-07-22] MEDS: CLOPIDOGREL 75 MG TABLET PO SCH (08:18)
[2021-07-22] MEDS: REMEDY ESSENTIAL ZINC PASTE 113 GM TOP SCH ×2 (08:18→20:18)
[2021-07-22] MEDS: NIFEdipine XL 30 MG TABSR PO SCH (08:18)
[2021-07-22] MEDS: ENOXAPARIN SODIUM 40 MG/0.4 ML DISP.SYRIN SQ SCH (08:23)
[2021-07-22] MEDS: GLUCERNA SHAKE VANILLA 237 ML CAN PO SCH ×3 (08:28→17:30)
[2021-07-22 11:33] VITALS: BP 146/44
[2021-07-22] MEDS: INSULIN REGULAR, HUMAN 300 UNIT/3 ML VIAL SQ PRN ×3 (11:42→20:17)
[2021-07-22] MEDS: MICAFUNGIN SODIUM 100 MG in IV NORMAL SALINE 100 ML IV SCH (13:53)
--- NOTE | 2021-07-22 15:26 | NUR ---
Pt is going to get bone marrow aspiration and biopsy tomorrow 07/23/[address] Boyce. Family at bedside at this time. Consent signed by POA daughterSalma. Per daughter, contacted and spoke to her about procedure. Daughter is informed. Pt is alert and oriented to self. She is unable to sign for herself. Comfort measures provided, call light within reach, no complaints at this time. Will continue to monitor.
[2021-07-22 16:17] VITALS: BP 138/64
[2021-07-22] MEDS: METFORMIN XR 500 MG TAB.SR.24H PO SCH (17:54)
[2021-07-22 20:11] VITALS: BP 136/51
[2021-07-22] MEDS: ATORVASTATIN 40 MG TABLET PO SCH (20:17)
[2021-07-23] MEDS: ACETAMINOPHEN 325 MG TABLET PO PRN (04:28)
[2021-07-23 04:30] VITALS: BP 164/82
[2021-07-23 05:45] VITALS: BP 149/55
[2021-07-23] MEDS: BLOOD SUGAR DIAGNOSTIC 1 EACH STRIP VI SCH ×3 (06:23→15:46)
[2021-07-23] MEDS: INSULIN REGULAR, HUMAN 300 UNIT/3 ML VIAL SQ PRN ×3 (08:02→15:51)
[2021-07-23] MEDS: PIOGLITAZONE HCL 15 MG TABLET PO SCH (08:09)
[2021-07-23] MEDS: FERROUS SULFATE 325 MG TABEC PO SCH (08:10)
[2021-07-23] MEDS: NIFEdipine XL 30 MG TABSR PO SCH (08:10)
[2021-07-23] MEDS: GLUCERNA SHAKE VANILLA 237 ML CAN PO SCH ×3 (08:12→17:16)
[2021-07-23] MEDS: ASPIRIN 81 MG TAB.CHEW PO SCH (08:12)
[2021-07-23] MEDS: FAMOTIDINE 20 MG TABLET PO SCH (08:12)
[2021-07-23] MEDS: CLOPIDOGREL 75 MG TABLET PO SCH (08:12)
[2021-07-23] MEDS: ENOXAPARIN SODIUM 40 MG/0.4 ML DISP.SYRIN SQ SCH ×2 (08:13→11:29)
[2021-07-23] MEDS: REMEDY ESSENTIAL ZINC PASTE 113 GM TOP SCH (08:13)
[2021-07-23] MEDS: CARVEDILOL 12.5 MG TABLET PO SCH ×2 (08:54→17:18)
[2021-07-23 11:54] VITALS: BP 164/83
--- NOTE | 2021-07-23 15:25 | NUR ---
CALLED 3 TIMES THE FACILITY [facility], THEY KEPT TRANSFERRING ME, SPOKE TO LUIS WELL, SHE SAID SHE IS GOING TO TRANSFER ME TO NURSE, NURSES KEPT HANGING UP Addendum: 07/23/21 at 1527 by ANIYA BALL RN, RN SPOKE TO CHAY WELL
--- NOTE | 2021-07-23 15:35 | NUR ---
report given to Salvador endorsed to follow up for vascular surgeon, and wound care Addendum: 07/24/21 at 0719 by ANIYA ABLL RN, RN spoke to dr Cathy Widl that patient is planned for discharge today, and there is recommendation for vascular surgeon medical device sales consultant, per dr Cathy Wild, patient can follow vascular surgeon outpatient from the facility, okay to discharge.
[2021-07-23 16:00] VITALS: BP 138/45
[2021-07-23 17:18] VITALS: BP 139/62
[2021-07-23] MEDS: METFORMIN XR 500 MG TAB.SR.24H PO SCH (17:25)
--- NOTE | 2021-07-23 17:42 | NUR ---
patient discharged to [facility], belongings are sent with patient, picked up by ambulance. stable condition. no acute distress noted. no IV on patient.
== END 2021-07-23 17:54 | DRG 871 ==
LOC: ER 22:35 → MEDSURG3 07-11 03:35
PROVIDERS: ADMIT Internal Medicine; ATTEND Internal Medicine
PROC: 30233N1 Transfusion of Nonautologous Red Blood Cells into Peripheral Vein, Percutaneous Approach (ICD-10-PCS; principal; 2021-07-11)
DX: A41.9 Sepsis, unspecified organism (principal); G92.8 Other toxic encephalopathy; J18.9 Pneumonia, unspecified organism; B37.49 Other urogenital candidiasis; N17.9 Acute kidney failure, unspecified; E87.1 Hypo-osmolality and hyponatremia; L89.322 Pressure ulcer of left buttock, stage 2; D47.2 Monoclonal gammopathy; D75.839 Thrombocytosis, unspecified; Z86.73 Personal history of transient ischemic attack (TIA), and cerebral infarction without residual deficits; Z87.440 Personal history of urinary (tract) infections; Z95.5 Presence of coronary angioplasty implant and graft; Z85.6 Personal history of leukemia; Z85.72 Personal history of non-Hodgkin lymphomas; Z79.4 Long term (current) use of insulin; I10 Essential (primary) hypertension; E87.6 Hypokalemia; E78.5 Hyperlipidemia, unspecified; Z79.84 Long term (current) use of oral hypoglycemic drugs; Z88.0 Allergy status to penicillin; Z88.2 Allergy status to sulfonamides; L89.896 Pressure-induced deep tissue damage of other site; L89.520 Pressure ulcer of left ankle, unstageable; L89.890 Pressure ulcer of other site, unstageable; Z20.822 Contact with and (suspected) exposure to COVID-19; D50.9 Iron deficiency anemia, unspecified; E11.65 Type 2 diabetes mellitus with hyperglycemia; D64.9 Anemia, unspecified
CPT/HCPCS: 36415; 71045; 77074; 82747; 82784; 83550; 83605; 83615; 83735; 84100; 84155; 84165; 84443; 85014; 85025; 85610; 85730; 86334; 86850; 86900; 86901; 86920; 87040; 87086; 93005; 97161; A4663; A6209; G0378; J0696; J1650; J1815; J2248; J2916; J3480; J7040; P9016